=== PATIENT | male | born 1980 | race American Indian/Alaskan Native ===

== ENCOUNTER 2017-04-21 21:14 | Inpatient (IN) | payer MEDICAID, OTHER ==
--- NOTE | 2017-04-21 22:20 | C.PDOC ---
History Of Present Illness The patient presents to the ED for psychiatric evaluation. Patient states he is homeless, depressed, and needs help with his medications. Patient denies suicidal/homicidal ideation at this time. Time Seen by Provider: 04/21/17 22:20 Chief Complaint (Nursing): Psychiatric Evaluation History Per: Patient History/Exam Limitations: no limitations Onset/Duration Of Symptoms: Days Current Symptoms Are (Timing): Still Present Suicide/Self Injury Attempted (Context): None Modifying Factor(s): None Severity: Mild Pain Scale Rating Of: 2 Associated Symptoms: Depression. denies: Suicidal Thoughts, Suicidal Plan Involuntary Hold By: None Recent travel outside of the [place]: No Additional History Per: Patient Past Medical History Reviewed: Historical Data, Nursing Documentation, Vital Signs Vital Signs: Last Vital Signs Temp 97.7 F 04/22/17 02:57 Pulse 77 04/22/17 02:57 Resp 18 04/22/17 02:57 BP 130/80 04/22/17 02:57 Pulse Ox 95 04/22/17 02:57 - Medical History PMH: Anxiety, Depression Surgical History: No Surg Hx Family History: States: Unknown Family Hx - Social History Hx Alcohol Use: Yes Hx Substance Use: Yes Review Of Systems Constitutional: Negative for: Fever, Chills Cardiovascular: Negative for: Chest Pain, Palpitations Respiratory: Negative for: Cough, Shortness of Breath Gastrointestinal: Negative for: Nausea, Vomiting, Abdominal Pain Skin: Negative for: Rash, Lesions, Jaundice, Bruising Neurological: Negative for: Weakness, Numbness Psych: Positive for: Depression. Negative for: Suicidal ideation Physical Exam - Physical Exam Appears: Non-toxic, No Acute Distress Skin: Warm, Dry Head: Normacephalic Eye(s): bilateral: Normal Inspection Oral Mucosa: Moist Neck: Supple Chest: Symmetrical, No Deformity Cardiovascular: Rhythm Regular, No Murmur Respiratory: No Accessory Muscle Use Gastrointestinal/Abdominal: Soft, No Tenderness, No Distention Back: No CVA Tenderness Extremity: Normal ROM Extremity: Bilateral: Atraumatic Pulses: Left Dorsalis Pedis: Normal, Right Dorsalis Pedis: Normal Neurological/Psych: Oriented x3 Gait: Steady ED Course And Treatment - Laboratory Results Result Diagrams: 04/21/17 23:40 04/21/17 23:40 O2 Sat by Pulse Oximetry: 100 (on RA) Pulse Ox Interpretation: Normal Progress Note: labs ordered and reviewed. Disposition Discussed With DrJose: Sean Mcnulty Comment: accepted the pt on his service and took over the care at 3:17AM Doctor Will See Patient In The: Hospital Counseled Patient/Family Regarding: Studies Performed, Diagnosis - Disposition Disposition: HOSPITALIZED Disposition Time: 22:20 Condition: FAIR Forms: [facility] (Guinean) - Clinical Impression Clinical Impression: Schizoaffective disorder - Scribe Statement The provider has reviewed the documentation as recorded by the Scribe (Bijal Luna) Provider Attestation: All medical record entries made by the Scribe were at my direction and personally dictated by me. I have reviewed the chart and agree that the record accurately reflects my personal performance of the history, physical exam, medical decision making, and the department course for this patient. I have also personally directed, reviewed, and agree with the discharge instructions and disposition. Decision To Admit - Pt Status Changed To: Hospital Disposition Of: Inpatient - Admit Certification Admit to Inpatient:: After my assessment, the patient will require hospitalization for at least two midnights. This is because of the severity of symptoms shown, intensity of services needed, and/or the medical risk in this patient being treated as an outpatient. - InPatient: Physician Admission Certification: I certify that this patient requires 2 or more midnights of care for the following reason:: After my assessment, the patient will require hospitalization for at least two midnights. This is because of the severity of symptoms shown, intensity of services needed, and/or the medical risk in this patient being treated as an outpatient. - . Bed Request Type: Psychiatry Admitting Physician: Sean Mcnulty Patient Diagnosis: Schizoaffective disorder
[2017-04-21 23:53] LABS: BASO % 0.4 % (0.0-2.0); EOS # 0.1 K/uL (0.0-0.7); EOS % 0.7 % (0.0-4.0); HEMATOCRIT 38.7 % (35.0-51.0); LYMPH # 3.4 K/uL (1.0-4.3); MEAN CELL VOLUME 73.6 fL (80.0-94.0); MEAN CORPUSCULAR HEMOGLOBIN 25.8 pg (27.0-31.0); MEAN CORPUSCULAR HGB CONC 35.1 g/dL (33.0-37.0); MONO # 0.6 K/uL (0.0-0.8); MONO % 7.9 % (0.0-10.0); NRBC % 0.2 % (0.0-2.0); RED CELL DISTRIBUTION WIDTH 17.1 % (11.5-14.5); WHITE BLOOD COUNT 7.1 K/uL (4.8-10.8)
[2017-04-21 23:56] LABS: CHLORIDE 101 mmol/L (98-107); SODIUM 140 mmol/L (132-148)
[2017-04-21 23:59] LABS: ALB/GLOB RATIO 1.4 (1.0-2.1); ALKALINE PHOSPHATASE 42 U/L (38-126); ALT/SGPT 23 U/L (21-72); AST/SGOT 19 U/L (17-59); BILIRUBIN,TOTAL 0.4 mg/dL (0.2-1.3); BLOOD UREA NITROGEN 10 mg/dL (9-20); CALCIUM 9.1 mg/dl (8.6-10.4); CARBON DIOXIDE 30 mmol/L (22-30); GFR AFRICAN-AMERICAN > 60; GLUCOSE,RANDOM 83 mg/dL (75-110)
[2017-04-22] LABS: ALCOHOL SERUM < 10 mg/dl (0-10)
[2017-04-22 00:53] LABS: URINE BILIRUBIN NEGATIVE (NEGATIVE); URINE BLOOD NEGATIVE (NEGATIVE); URINE COLOR Straw (YELLOW); URINE GLUCOSE (UA) NORMAL (Normal); URINE KETONE NEGATIVE (NEGATIVE); URINE LEUKOCYTE ESTERASE NEG Leu/uL (Negative); URINE PROTEIN NEGATIVE (NEGATIVE); URINE UROBILINOGEN NORMAL mg/dL (0.2-1.0)
[2017-04-22] MEDS ORDERED: Pneumococcal 23-Valent Vaccine IM ONE (04:33)
--- NOTE | 2017-04-22 04:40 | PCM.BM ---
<MikejohanaKhushi - Last Filed: 04/22/17 04:37> Treatment Plan Problems - Problems identified on initial assessmt Depression Date Initiated: 04/22/17 Time Initiated: 04:38 Assessment reference: NA Status: Active Treatment assets and liabiliti Patient Assests: cooperative, motivated, self-reliant, ADL independent, negotiates basic needs Patient Liabilities: live alone, financial problems, poor support system, relationship conflicts, dietary restrictions - Milieu Protocol Maintain good personal hygiene: daily Encourage regular showers, daily Remind patient to perform daily oral care, daily Assist patient to perform ADL's Maintain personal safety: every shift Educate patient to report safety concerns to staff, every shift Monitor environment for contraband/sharps Medication safety: Monitor for expected outcome, potential side effects: every shift, Assess barriers to learning: every shift, Assess readiness for medication education: every shift <Danielle Robb - Last Filed: 04/22/17 10:48> Family Contact Family involvement: Famliy/SO not involved - Outside Agency Agency 1 Care involvment: Following patient during stay, Information-sharing Agency contact name: [facility] contact number: - Goals for Treatment Patient goals for treatment: "I need housing." Discharge/Continuing Care - Education Needs Education Needs: Patient Medication, Patient Coping Skills, Patient Placement options, Patient Community resources - Discharge Discharge Criteria: Tolerates medication w/o severe side effects, Free of Suicidal thoughts, Reduction of target symptoms Discharge to:: [facility] - Treatment Team Participation Discussed with Family/SO: No Was Patient/Family/SO present at Treatment Team Meeting: Yes <Mita Vivas - Last Filed: 04/24/17 15:50> - Diagnosis (1) Schizoaffective disorder Status: Acute Interventions: 04/24/17 15:50 * Assess/adjust medications daily and /or as needed * See patient on an individual basis 7x/week to assess level of manic behaviors and stability * Discuss risks, benefits, side effects and alternatives of medications *
[2017-04-22] MEDS: Divalproex 500 mg DR Tab PO SCH ×2 (12:07→17:35)
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
[2017-04-23] MEDS: Divalproex 500 mg DR Tab PO SCH ×2 (09:25→17:04)
--- NOTE | 2017-04-23 11:13 | PCM.PYCHPN ---
Psychiatric Progress Note - Psychiatric Progress Note Patient seen today, length of contact: 15 minutes Patient Chief Complaint: "Everything is well" Problems Identified/Issues Discussed: The patient was seen, chart reviewed, case discussed with staff. The patient is compliant with medications and reports no side effects. Patient states that "everything is well" and he slept last night. He denies suicidal ideation or paranoia. Symptoms are improving, but patient is at increased risk for relapse, appears childlike in nature with regression, thus needs more time to stabilize. After care discussed--patient will likely be discharged next week and expresses understanding. Support and psychoeducation given. Medication Change: No Medical Record Reviewed: Yes Mental Status Examination - Cognitive Function Orientation: Person, Place, Situation, Time Memory: Intact Attention: WNL Concentration: Poor Association: WNL Fund of Knowledge: WNL - Mood Mood: Anxious - Affect Affect: Constricted - Speech Speech: Appropriate, Soft - Formal Thought Process Formal Thought Process: No Impairment - Suicidal Ideation Suicidal Ideation: No - Homicidal Ideation Homicidal Ideation: No Goal/Treatment Plan - Goal/Treatment Plan Need for Continued Stay: Discharge may exacerbated symptoms Progress Toward Problem(s) and Goals/Treatment Plan: Continue medications Support and psychoeducation daily Attend groups and activities daily After care planning by KIKO
[2017-04-24] MEDS: Divalproex 500 mg DR Tab PO SCH ×2 (09:09→17:55)
--- NOTE | 2017-04-24 11:41 | PCM.PYCHPN ---
Psychiatric Progress Note - Psychiatric Progress Note Patient seen today, length of contact: 15 minutes Patient Chief Complaint: "OK" Problems Identified/Issues Discussed: The pt is seen, chart reviewed, case discussed with staff. Support given, CBT and MS used briefly No new symptoms reported, improving slowly and needs more time No SEs from medications, risks discussed. After care discussed, will go back to [facility] but they are not calling us back. He says he is homeless otherwise Medication Change: No Medical Record Reviewed: Yes Mental Status Examination - Cognitive Function Orientation: Person, Place, Situation, Time Memory: Intact Attention: WNL Concentration: Poor Association: WNL Fund of Knowledge: WNL - Mood Mood: Anxious - Affect Affect: Constricted - Speech Speech: Appropriate, Soft - Formal Thought Process Formal Thought Process: No Impairment - Suicidal Ideation Suicidal Ideation: No - Homicidal Ideation Homicidal Ideation: No Goal/Treatment Plan - Goal/Treatment Plan Need for Continued Stay: Discharge may exacerbated symptoms Progress Toward Problem(s) and Goals/Treatment Plan: Continue medications Support and psychoeducation daily Attend groups and activities daily After care planning: [facility] Depot shot if we could learn the last shot's date
[2017-04-25] MEDS: Divalproex 500 mg DR Tab PO SCH ×2 (09:13→17:13)
--- NOTE | 2017-04-25 19:04 | PCM.PYCHPN ---
Psychiatric Progress Note - Psychiatric Progress Note Patient seen today, length of contact: 15 minutes Patient Chief Complaint: I'm feeling much better, not hearing any voices. Problems Identified/Issues Discussed: Patient seen. Chart reviewed. Case discussed with the staff. Issues related to illness and treatment were discussed with the patient. Reported compliant with treatment with no adverse affects. Tolerating treatment very well. Reported feeling much better, not hearing any voices. Better sleep. At the time of evaluation, patient was awake alert oriented 3, had no delusions , no auditory or visual hallucinations, no suicidal ideations or homicidal ideations. Medical Problems: None reported Diagnostic Results: Reviewed DSM 5 Symptoms Update: Improving with treatment Medication Change: No Medical Record Reviewed: Yes Mental Status Examination - Cognitive Function Orientation: Person, Place, Situation, Time Memory: Intact Attention: WNL Concentration: WNL Association: WN Fund of Knowledge: [facility] Decription of patient's judgement and insights: Fair - Mood Mood: Neutral - Affect Affect: Other (Appropriate) - Speech Speech: Appropriate, Soft - Formal Thought Process Formal Thought Process: No Impairment - Suicidal Ideation Suicidal Ideation: No - Homicidal Ideation Homicidal Ideation: No Goal/Treatment Plan - Goal/Treatment Plan Need for Continued Stay: Remain at risks for inpatient hospitalization, Discharge may exacerbated symptoms, Severe functional impairment Progress Toward Problem(s) and Goals/Treatment Plan: Patient education Supportive therapy Continue treatment as before Estimated Date of D/C: 04/28/17 - Smoking Cessation Smoking Cessation Initiated: No
[2017-04-26] MEDS: Divalproex 500 mg DR Tab PO SCH ×2 (09:03→17:36)
--- NOTE | 2017-04-26 14:59 | PCM.PYCHPN ---
Psychiatric Progress Note - Psychiatric Progress Note Patient seen today, length of contact: 15 minutes Patient Chief Complaint: I'm feeling much better, not hearing any voices. Problems Identified/Issues Discussed: Patient seen. Chart reviewed. Case discussed with the staff. Issues related to illness and treatment were discussed with the patient. Reported compliant with treatment with no adverse affects. Tolerating treatment very well. Reported feeling much better, not hearing any voices. Better sleep. Reported he is worried about his living situation outside. Wants to get an apartment before leave. At the time of evaluation, patient was awake alert oriented 3, had no delusions , no auditory or visual hallucinations, no suicidal ideations or homicidal ideations. Medical Problems: None reported Diagnostic Results: Reviewed DSM 5 Symptoms Update: Improving with treatment Medication Change: No Medical Record Reviewed: Yes Mental Status Examination - Cognitive Function Orientation: Person, Place, Situation, Time Memory: Intact Attention: WNL Concentration: WNL Association: WNL Fund of Knowledge: WN Decription of patient's judgement and insights: Fair - Mood Mood: Neutral - Affect Affect: Other (Appropriate) - Speech Speech: Soft - Formal Thought Process Formal Thought Process: Loosening of associations - Suicidal Ideation Suicidal Ideation: No - Homicidal Ideation Homicidal Ideation: No Goal/Treatment Plan - Goal/Treatment Plan Need for Continued Stay: Remain at risks for inpatient hospitalization, Discharge may exacerbated symptoms, Severe functional impairment Progress Toward Problem(s) and Goals/Treatment Plan: Patient education Supportive therapy Continue treatment as before Estimated Date of D/C: 04/28/17 - Smoking Cessation Smoking Cessation Initiated: No
[2017-04-27] MEDS: Divalproex 500 mg DR Tab PO SCH ×2 (09:31→17:24)
--- NOTE | 2017-04-27 22:02 | PCM.PYCHPN ---
Psychiatric Progress Note - Psychiatric Progress Note Patient seen today, length of contact: 15 minutes Patient Chief Complaint: "I can't leave here yet" Problems Identified/Issues Discussed: The pt is seen, chart reviewed, case discussed with staff. Support given, CBT and [place] used briefly He is irate and gets intimidating when he is told that he cannot stay just so he can get his $ He plans to stay in a "rooming house by [facility] on [address]," but as per our SW [facility] has not told anything about it [facility] also said that he doesn't get along and gets kicked out from everywhere. He had 250 mg Haldol Dec via [facility] around 04/01 as per [facility] Medication Change: Yes (start haldol dec 200 mg) Medical Record Reviewed: Yes Mental Status Examination - Cognitive Function Orientation: Person, Place, Situation, Time Memory: Intact Attention: WNL Concentration: WNL Association: WNL Fund of Knowledge: WNL - Mood Mood: Neutral - Affect Affect: Other (Appropriate) - Speech Speech: Soft - Formal Thought Process Formal Thought Process: Loosening of associations - Suicidal Ideation Suicidal Ideation: No - Homicidal Ideation Homicidal Ideation: No Goal/Treatment Plan - Goal/Treatment Plan Need for Continued Stay: Remain at risks for inpatient hospitalization, Discharge may exacerbated symptoms, Severe functional impairment Progress Toward Problem(s) and Goals/Treatment Plan: Continue medications Support and psychoeducation daily Attend groups and activities daily After care planning: [facility] Haldol Depot shot but 200 mg, not 250. Estimated Date of D/C: 05/01/17
[2017-04-28] MEDS: Divalproex 500 mg DR Tab PO SCH ×2 (09:54→17:25)
[2017-04-28] MEDS ORDERED: Haloperidol Decanoate 100 mg/ml Inj IM ONE (10:00)
--- NOTE | 2017-04-28 12:42 | PCM.PYCHPN ---
Psychiatric Progress Note - Psychiatric Progress Note Patient seen today, length of contact: 15 minutes Patient Chief Complaint: "I am irritable" Problems Identified/Issues Discussed: The pt is seen, chart reviewed, case discussed with staff. Support given, CBT and [place] used He has the insight to know he is getting more irate lately and testy He has not gotten into any fights but meds increased He keeps cursing at [facility] team ("a..h..s") for no reason and he believes they did not help him even though the fact is the opposite Reality testing encouraged He got his Dec shot, first part Medication Change: Yes (start haldol dec 200 mg) Medical Record Reviewed: Yes Mental Status Examination - Cognitive Function Orientation: Person, Place, Situation, Time Memory: Intact Attention: WNL Concentration: WNL Association: WNL Fund of Knowledge: Poor - Mood Mood: Other (angry at times, irate) - Affect Affect: Constricted - Speech Speech: Soft - Formal Thought Process Formal Thought Process: Loosening of associations - Suicidal Ideation Suicidal Ideation: No - Homicidal Ideation Homicidal Ideation: No Goal/Treatment Plan - Goal/Treatment Plan Need for Continued Stay: Remain at risks for inpatient hospitalization, Discharge may exacerbated symptoms, Severe functional impairment Progress Toward Problem(s) and Goals/Treatment Plan: Continue medications but increase depakote Valp level on [place] Support and psychoeducation daily Attend groups and activities daily After care planning: [facility] Haldol Depot shot but 200 mg, not 250. Estimated Date of D/C: 05/01/17
[2017-04-29] MEDS: Divalproex 500 mg DR Tab PO SCH ×2 (09:11→17:08)
--- NOTE | 2017-04-29 09:47 | PCM.BM ---
<Danielle Robb - Last Filed: 04/29/17 09:45> Treatment Plan Problems - Problems identified on initial assessmt Depression Date Initiated: 04/22/17 Time Initiated: 04:38 Assessment reference: NA Status: Active Treatment assets and liabiliti Patient Assests: cooperative, motivated, self-reliant, ADL independent, negotiates basic needs Patient Liabilities: live alone, financial problems, poor support system, relationship conflicts, dietary restrictions - Milieu Protocol Maintain good personal hygiene: daily Encourage regular showers, daily Remind patient to perform daily oral care, daily Assist patient to perform ADL's Maintain personal safety: every shift Educate patient to report safety concerns to staff, every shift Monitor environment for contraband/sharps Medication safety: Monitor for expected outcome, potential side effects: every shift, Assess barriers to learning: every shift, Assess readiness for medication education: every shift Milieu Narrative: Continue medications but increase depakote Valp level on Samara Support and psychoeducation daily Attend groups and activities daily After care planning: [facility] Haldol Depot shot but 200 mg, not 250. Family Contact Family involvement: Famliy/SO not involved - Outside Agency Agency 1 Care involvment: Following patient during stay, Information-sharing Agency contact name: [facility] Agency contact number: - Goals for Treatment Patient goals for treatment: "I need housing." Discharge/Continuing Care - Education Needs Education Needs: Patient Medication, Patient Coping Skills, Patient Placement options, Patient Community resources - Discharge Discharge Criteria: Tolerates medication w/o severe side effects, Free of Suicidal thoughts, Reduction of target symptoms Discharge to:: Residential - Treatment Team Participation Patient/Family/SO Statement: Continue medications but increase depakote Valp level on Samara Support and psychoeducation daily Attend groups and activities daily After care planning: [facility] Haldol Depot shot but 200 mg, not 250. Discussed with Family/SO: No Was Patient/Family/SO present at Treatment Team Meeting: Yes Treatment Plan Review Patient participation: Yes Family/SO/Caregiver participation: No - Problem Depression Date Initiated: 04/29/17 Time Initiated: 09:47 Progress toward outcomes: unchanged <Mita Vivas - Last Filed: 04/29/17 12:25> - Diagnosis (1) Schizoaffective disorder Status: Acute Interventions: 04/29/17 12:26 * Assess/adjust medications daily and /or as needed * Discuss risks, benefits, sided effects and alternatives of medications * See patient on an individual basis 7x/week to assess level of delusional thoughts/ideation * See patient on an individual basis 7x/week to assess level of manic behaviors and stability * * <Lizeth George - Last Filed: 04/29/17 13:33> Treatment Plan Review - Discharge / Continuing Care Discharge to:: [facility]idential [facility] Services: Other Health Needs: Doctor appointments, Medications/Rx
[2017-04-29] MEDS ORDERED: Haloperidol Decanoate 100 mg/ml Inj IM ONE (10:00)
--- NOTE | 2017-04-29 12:25 | PCM.PYCHPN ---
Psychiatric Progress Note - Psychiatric Progress Note Patient seen today, length of contact: 16 min Patient Chief Complaint: "I am leaving Thursday" Problems Identified/Issues Discussed: The pt is seen, chart reviewed, case discussed with staff. Support given, CBT and PR used Got the 200 mg haldol dec shot in 2 days Still irate and somewhat paranoid but denies HI, SI and AVH/del. He "hears" staff talking negatively or bothering him - which may be his sx Sleeps OK How to control mood and bhv and anger discussed Somewhat entitled and help-rejecting. Medication Change: Yes Medical Record Reviewed: Yes Mental Status Examination - Cognitive Function Orientation: Person, Place, Situation, Time Memory: Intact Attention: WNL Concentration: WNL Association: WNL Fund of Knowledge: Poor - Mood Mood: Other (angry at times, irate) - Affect Affect: Constricted - Speech Speech: Soft - Formal Thought Process Formal Thought Process: Loosening of associations - Suicidal Ideation Suicidal Ideation: No - Homicidal Ideation Homicidal Ideation: No Goal/Treatment Plan - Goal/Treatment Plan Need for Continued Stay: Remain at risks for inpatient hospitalization, Discharge may exacerbated symptoms, Severe functional impairment Progress Toward Problem(s) and Goals/Treatment Plan: Continue medications but increase depakote Valp level on Samara Support and psychoeducation daily Attend groups and activities daily After care planning: [facility] Haldol Depot shot but 200 mg, not 250. Estimated Date of D/C: 05/01/17
[2017-04-30 08:18] LABS: BASO % 0.4 % (0.0-2.0); EOS # 0.1 K/uL (0.0-0.7); EOS % 1.6 % (0.0-4.0); LYMPH # 2.3 K/uL (1.0-4.3); LYMPH % 35.2 % (20.0-40.0); MEAN CELL VOLUME 73.6 fL (80.0-94.0); MEAN CORPUSCULAR HEMOGLOBIN 25.6 pg (27.0-31.0); MEAN CORPUSCULAR HGB CONC 34.8 g/dL (33.0-37.0); MONO # 0.9 K/uL (0.0-0.8); MONO % 13.2 % (0.0-10.0); RED CELL DISTRIBUTION WIDTH 17.3 % (11.5-14.5); WHITE BLOOD COUNT 6.6 K/uL (4.8-10.8)
[2017-04-30 08:29] LABS: CHLORIDE 95 mmol/L (98-107); POTASSIUM 4.9 mmol/L (3.6-5.2); SODIUM 139 mmol/L (132-148)
[2017-04-30 08:31] LABS: BILIRUBIN,TOTAL 0.5 mg/dL (0.2-1.3); CARBON DIOXIDE 30 mmol/L (22-30); GFR AFRICAN-AMERICAN > 60
[2017-04-30 08:32] LABS: ALB/GLOB RATIO 1.3 (1.0-2.1); ALKALINE PHOSPHATASE 45 U/L (38-126); ALT/SGPT 36 U/L (21-72); AST/SGOT 25 U/L (17-59); BLOOD UREA NITROGEN 16 mg/dL (9-20); CALCIUM 9.3 mg/dl (8.6-10.4); GLUCOSE,RANDOM 86 mg/dL (75-110); TOTAL PROTEIN 7.4 g/dL (6.3-8.3)
[2017-04-30] MEDS: Divalproex 500 mg DR Tab PO SCH ×2 (09:42→17:11)
--- NOTE | 2017-04-30 12:25 | PCM.PYCHPN ---
Psychiatric Progress Note - Psychiatric Progress Note Patient seen today, length of contact: 17 min Patient Chief Complaint: "I am calm" Problems Identified/Issues Discussed: The pt is seen, chart reviewed, case discussed with staff. He is not calm actually but also not agitated a lot or irate frequently. He has a short fuse and little things annoy him. He also misperceives things which can get him into trouble in the near future. How to control and decrease these discussed but he is rigid. Compliant with meds, no SEs and AIMS is zero Medication Change: No Medical Record Reviewed: Yes Mental Status Examination - Cognitive Function Orientation: Person, Place, Situation, Time Memory: Intact Attention: WNL Concentration: WNL Association: WNL Fund of Knowledge: Poor - Mood Mood: Other (angry at times, irate) - Affect Affect: Constricted - Speech Speech: Soft - Formal Thought Process Formal Thought Process: Loosening of associations - Suicidal Ideation Suicidal Ideation: No - Homicidal Ideation Homicidal Ideation: No Goal/Treatment Plan - Goal/Treatment Plan Need for Continued Stay: Remain at risks for inpatient hospitalization, Discharge may exacerbated symptoms, Severe functional impairment Progress Toward Problem(s) and Goals/Treatment Plan: Continue medications but increase depakote Valp level done: 91.8, he is recommended to repeat it in a month. [facility] does it. Support and psychoeducation daily Attend groups and activities daily After care planning: [facility] Haldol Depot shot but 200 mg given Estimated Date of D/C: 05/01/17
[2017-05-01 08:31] VITALS: BP 131/87; PULSE 70; RESP 16; TEMP 98; O2SAT 99
[2017-05-01] MEDS: Divalproex 500 mg DR Tab PO SCH (09:35)
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
== END 2017-05-01 10:39 | disposition home or self-care (01) | DRG 430 ==
LOC: C.ER 21:14 → C.5E 04-22 03:15
PROVIDERS: ADMIT Psychiatry & Neurology Psychiatry; ATTEND Psychiatry & Neurology Psychiatry
PROC: GZ58ZZZ Individual Psychotherapy, Cognitive-Behavioral (ICD-10-PCS; principal; 2017-04-22)
PROC: GZ56ZZZ Individual Psychotherapy, Supportive (ICD-10-PCS; 2017-04-22)
DX: F25.0 Schizoaffective disorder, bipolar type (principal); Z59.0 Homelessness; F12.90 Cannabis use, unspecified, uncomplicated

== ENCOUNTER 2017-06-03 14:00 | Inpatient (IN) | payer MEDICAID, OTHER ==
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
[2017-06-03 15:15] LABS: BASO % 0.2 % (0.0-2.0); EOS # 0.1 K/uL (0.0-0.7); EOS % 1.2 % (0.0-4.0); HEMATOCRIT 44.4 % (35.0-51.0); LYMPH # 2.4 K/uL (1.0-4.3); LYMPH % 39.5 % (20.0-40.0); MEAN CELL VOLUME 74.7 fL (80.0-94.0); MEAN CORPUSCULAR HEMOGLOBIN 25.1 pg (27.0-31.0); MEAN CORPUSCULAR HGB CONC 33.6 g/dL (33.0-37.0); MEAN PLATELET VOLUME 8.5 fL (7.2-11.7); MONO # 0.5 K/uL (0.0-0.8); NRBC % 0.1 % (0.0-2.0); RED CELL DISTRIBUTION WIDTH 17.2 % (11.5-14.5); WHITE BLOOD COUNT 6.2 K/uL (4.8-10.8)
[2017-06-03 15:23] LABS: CHLORIDE 101 mmol/L (98-107)
[2017-06-03 15:24] LABS: POTASSIUM 3.9 mmol/L (3.6-5.2); SODIUM 138 mmol/L (132-148)
[2017-06-03 15:25] LABS: RBC URINE < 1 /hpf (0-3); URINE BILIRUBIN NEGATIVE (NEGATIVE); URINE BLOOD NEGATIVE (NEGATIVE); URINE COLOR Amber (YELLOW); URINE GLUCOSE (UA) NORMAL (Normal); URINE KETONE NEGATIVE (NEGATIVE); URINE LEUKOCYTE ESTERASE NEG Leu/uL (Negative); URINE PROTEIN 1+ mg/dL (NEGATIVE); URINE UROBILINOGEN NORMAL mg/dL (0.2-1.0); WBC URINE 1 /hpf (0-5)
[2017-06-03 15:26] LABS: ALB/GLOB RATIO 1.1 (1.0-2.1); ALKALINE PHOSPHATASE 58 U/L (38-126); ALT/SGPT 41 U/L (21-72); AST/SGOT 28 U/L (17-59); BILIRUBIN,TOTAL 0.6 mg/dL (0.2-1.3); BLOOD UREA NITROGEN 11 mg/dL (9-20); CARBON DIOXIDE 26 mmol/L (22-30); GFR AFRICAN-AMERICAN > 60; GLUCOSE,RANDOM 85 mg/dL (75-110); TOTAL PROTEIN 8.8 g/dL (6.3-8.3)
[2017-06-03 15:27] LABS: ALCOHOL SERUM < 10 mg/dl (0-10); CALCIUM 9.3 mg/dl (8.6-10.4)
--- NOTE | 2017-06-03 18:06 | PCM.BM ---
<Dyan Boucheran - Last Filed: 06/03/17 18:05> Treatment Plan Problems - Problems identified on initial assessmt Auditory Hallucinations Date Initiated: 06/03/17 Time Initiated: 18:05 Assessment reference: NA Status: Active Comment: non compliant with medications Treatment assets and liabiliti Patient Assests: cooperative, motivated, self-reliant, ADL independent, negotiates basic needs Patient Liabilities: financial problems, poor support system, substance abuse, other - Milieu Protocol Maintain good personal hygiene: daily Encourage regular showers, daily Remind patient to perform daily oral care Conduct patient checks and document Observation sheet: Q15 minutes Maintain personal safety: every shift Educate patient to report safety concerns to staff, every shift Monitor environment for contraband/sharps Medication safety: Monitor for expected outcome, potential side effects: every shift, Assess barriers to learning: every shift, Assess readiness for medication education: every shift <HamletSean - Last Filed: 06/05/17 10:58> - Diagnosis (1) Schizoaffective disorder, bipolar type Status: Acute Interventions: 06/05/17 10:58 * Assess/adjust medications daily and /or as needed * See patient on an individual basis 7x/week to assess status of hallucinations * Discuss risks, benefits, side effects and alternatives of medications * <Danielle Robb - Last Filed: 06/05/17 11:05> Family Contact Family involvement: Famliy/SO not involved - Outside Agency Agency 1 Care involvment: Following patient during stay, Information-sharing Agency contact name: [facility] Agency contact number: - Goals for Treatment Patient goals for treatment: "I want to go back to [facility]." Discharge/Continuing Care - Education Needs Education Needs: Patient Medication, Patient Coping Skills - Discharge Discharge Criteria: Tolerates medication w/o severe side effects, Reduction of target symptoms Discharge to:: [facility] - Treatment Team Participation Discussed with Family/SO: No Was Patient/Family/SO present at Treatment Team Meeting: Yes
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
--- NOTE | 2017-06-05 10:58 | PCM.PYCHPN ---
Psychiatric Progress Note - Psychiatric Progress Note Patient seen today, length of contact: 15 min Patient Chief Complaint: 'I am feeling little better.' Problems Identified/Issues Discussed: Patient seen and evaluated, chart reviewed and discussed with the nurse. Patient remained disorganized and internally preoccupied. He appeared suspicious , paranoid and psychotic. He remained superficially cooperative and guarded about the details. However denied any suicidal ideation or homicidal ideation. He remained calm and cooperative and started taking medication and denies any side effects. He still appears disheveled and unkempt. Supportive therapy and psychoeducation were given. Medication Change: Yes (increase haldol) Medical Record Reviewed: Yes Mental Status Examination - Cognitive Function Orientation: Person, Place, Situation, Time Memory: Intact Attention: Poor Concentration: Poor Association: Loose Fund of Knowledge: Poor - Mood Mood: Anxious - Affect Affect: Blunted - Speech Speech: Soft - Formal Thought Process Formal Thought Process: Hallucinations, Delusions, Paranoia, Loosening of associations, Flight of ideas, Circumstantial - Suicidal Ideation Suicidal Ideation: No - Homicidal Ideation Homicidal Ideation: No Goal/Treatment Plan - Goal/Treatment Plan Need for Continued Stay: Discharge may exacerbated symptoms, Severe functional impairment Progress Toward Problem(s) and Goals/Treatment Plan: Schizoaffective disorder Bipolar type CBT Attend groups and activities Individual therapy Psychoeducation and support Encourage compliance with meds and after care Benztropine 1 mg PO BID Haloperidol 10 mg PO BID Depakote 500 mg pO BID Trazodone 100 mg PO QHS Klonopin 0.5 mg PO BID Refer to outpatient program Teach healthy lifestyle methods, i.e. diet, exercise, meditation Smoking cessation h/o seizure, Monitor s/s Bronchitis, Monitor s/s HTN Monitor s/s - Smoking Cessation Smoking Cessation Initiated: No
[2017-06-05] MEDS: Divalproex 500 mg DR Tab PO SCH ×2 (15:50→17:29)
[2017-06-06] MEDS: Divalproex 500 mg DR Tab PO SCH ×2 (09:32→17:12)
--- NOTE | 2017-06-06 13:47 | PCM.PYCHPN ---
Psychiatric Progress Note - Psychiatric Progress Note Patient seen today, length of contact: 15 min Patient Chief Complaint: "OK here" Problems Identified/Issues Discussed: The pt is seen, chart reviewed, case discussed with staff. Support given, CBT and AK used briefly No new symptoms reported, improving slowly and needs more time No SEs from medications, risks discussed. After care discussed, will go to [facility] Medication Change: No Medical Record Reviewed: Yes Mental Status Examination - Cognitive Function Orientation: Person, Place, Situation, Time Memory: Intact Attention: Poor Concentration: Poor Association: Loose Fund of Knowledge: Poor - Mood Mood: Anxious - Affect Affect: Blunted - Speech Speech: Soft - Formal Thought Process Formal Thought Process: Paranoia - Suicidal Ideation Suicidal Ideation: No - Homicidal Ideation Homicidal Ideation: No Goal/Treatment Plan - Goal/Treatment Plan Need for Continued Stay: Discharge may exacerbated symptoms, Severe functional impairment Progress Toward Problem(s) and Goals/Treatment Plan: Continue medications Support and psychoeducation daily Attend groups and activities daily After care planning by KIKO
[2017-06-07] MEDS: Divalproex 500 mg DR Tab PO SCH ×2 (09:45→17:08)
--- NOTE | 2017-06-07 23:32 | PCM.PYCHPN ---
Psychiatric Progress Note - Psychiatric Progress Note Patient seen today, length of contact: 15 min Patient Chief Complaint: "OK here" Problems Identified/Issues Discussed: The pt is seen, chart reviewed, case discussed with staff. The pt is compliant with medications and reports no side-effects. Symptoms are improving but needs more time to stabilize. After care discussed, support and psychoeducation given. Wants to get another depot injection but doesn't recall the name - will check from [facility] tomorrow Medication Change: No Medical Record Reviewed: Yes Mental Status Examination - Cognitive Function Orientation: Person, Place, Situation, Time Memory: Intact Attention: Poor Concentration: Poor Association: Loose Fund of Knowledge: Poor - Mood Mood: Anxious - Affect Affect: Blunted - Speech Speech: Soft - Formal Thought Process Formal Thought Process: Paranoia - Suicidal Ideation Suicidal Ideation: No - Homicidal Ideation Homicidal Ideation: No Goal/Treatment Plan - Goal/Treatment Plan Need for Continued Stay: Discharge may exacerbated symptoms, Severe functional impairment Progress Toward Problem(s) and Goals/Treatment Plan: Continue medications Support and psychoeducation daily Attend groups and activities daily After care planning: back to [facility]
--- NOTE | 2017-06-08 10:02 | PCM.PYCHPN ---
Psychiatric Progress Note - Psychiatric Progress Note Patient seen today, length of contact: 16 min Patient Chief Complaint: "The voices are lower" Problems Identified/Issues Discussed: Patient seen and evaluated, chart reviewed and discussed with the nurse. Patient remains disorganized although less internally preoccupied. He admitted to the return of suicidal and homicidal thoughts. He appears paranoid and psychotic, as well as disheveled and unkempt. He remained calm and cooperative during discussion. He wants to stay in the hospital until July when his next check comes. Supportive therapy and psychoeducation were given. Medication Change: No Medical Record Reviewed: Yes Mental Status Examination - Cognitive Function Orientation: Person, Place, Situation, Time Memory: Intact Attention: Poor Concentration: Poor Association: Loose Fund of Knowledge: Poor - Mood Mood: Anxious - Affect Affect: Blunted - Speech Speech: Soft, Pressured - Formal Thought Process Formal Thought Process: Hallucinations, Paranoia Psychotic Thoughts and Behaviors: hearing voices - Suicidal Ideation Suicidal Ideation: Yes - Homicidal Ideation Homicidal Ideation: Yes Goal/Treatment Plan - Goal/Treatment Plan Need for Continued Stay: Discharge may exacerbated symptoms, Severe functional impairment Progress Toward Problem(s) and Goals/Treatment Plan: Schizoaffective disorder bipolar type CBT Attend groups and activites Individual therapy Psychoeducation and support Encourage compliance with meds and after care Benztropine 1mg PO BID Haloperidol 10 mg PO BID Depakote 500 mg PO QHS Trazodone 100 mg PO BID Klonopin .5 mg PO BID refer to outpatient program Teach healthy lifestyle methods, i.e. diet, exercise, meditation Smoking cessation H/o seizure monitor s/s H/o bronchitis monitor s/s HTN monitor s/s - Smoking Cessation Smoking Cessation Initiated: No
[2017-06-08] MEDS: Divalproex 500 mg DR Tab PO SCH ×2 (10:47→17:13)
--- NOTE | 2017-06-09 09:56 | PCM.PYCHPN ---
Psychiatric Progress Note - Psychiatric Progress Note Patient seen today, length of contact: 16 min Patient Chief Complaint: "I feel about the same" Problems Identified/Issues Discussed: Patient seen and evaluated, chart reviewed and discussed with the nurse. As per the staff, patient appears more organized and less internally preoccupied than before. He states he slept well. He appears less paranoid and less psychotic. However, he remained disheveled and unkempt. He remained calm and cooperative during discussion. He is taking medications and denies any side effects. He needs more time for stabilization. Supportive therapy and psychoeducation were given. Medication Change: No Medical Record Reviewed: Yes Mental Status Examination - Cognitive Function Orientation: Person, Place, Situation, Time Memory: Intact Attention: WNL Concentration: Poor Association: Loose Fund of Knowledge: Poor - Mood Mood: Anxious - Affect Affect: Blunted - Speech Speech: Soft, Pressured - Formal Thought Process Formal Thought Process: Hallucinations, Paranoia Psychotic Thoughts and Behaviors: hearing voices - Suicidal Ideation Suicidal Ideation: No - Homicidal Ideation Homicidal Ideation: No Goal/Treatment Plan - Goal/Treatment Plan Need for Continued Stay: Discharge may exacerbated symptoms, Severe functional impairment Progress Toward Problem(s) and Goals/Treatment Plan: Schizoaffective disorder bipolar type CBT Attend groups and activites Individual therapy Psychoeducation and support Encourage compliance with meds and after care Benztropine 1mg PO BID Haloperidol 10 mg PO BID Depakote 500 mg PO QHS Trazodone 100 mg PO BID Klonopin .5 mg PO BID refer to outpatient program Teach healthy lifestyle methods, i.e. diet, exercise, meditation Smoking cessation H/o seizure monitor s/s H/o bronchitis monitor s/s HTN monitor s/s - Smoking Cessation Smoking Cessation Initiated: No
[2017-06-09] MEDS: Divalproex 500 mg DR Tab PO SCH ×2 (10:34→17:35)
[2017-06-10] MEDS: Divalproex 500 mg DR Tab PO SCH ×2 (09:59→17:12)
--- NOTE | 2017-06-10 11:06 | PCM.PYCHPN ---
Psychiatric Progress Note - Psychiatric Progress Note Patient seen today, length of contact: 15 min Patient Chief Complaint: "I have no more bad thoughts" Problems Identified/Issues Discussed: The pt is seen, chart reviewed, case discussed with staff. The pt is compliant with medications and reports no side-effects. Symptoms are improving but needs more time to stabilize. Patient appears more organized and less internally preoccupied than before. He appears less paranoid and less psychotic. However, he remained disheveled and unkempt. After care discussed, support and psychoeducation given. Patient stated he slept well and is excited for discharge next week. Patient states he no longer has SI or AVH, however he reports persecutory delusions that people are after him. Supportive therapy and psychoeducation were given. Medication Change: Yes (reduce klonopin) Medical Record Reviewed: Yes Mental Status Examination - Cognitive Function Orientation: Person, Place, Situation, Time Memory: Intact Attention: WNL Concentration: Poor Association: WNL Fund of Knowledge: Poor - Mood Mood: Anxious - Affect Affect: Blunted - Speech Speech: Soft - Formal Thought Process Formal Thought Process: Paranoia Psychotic Thoughts and Behaviors: hearing voices - Suicidal Ideation Suicidal Ideation: No - Homicidal Ideation Homicidal Ideation: No Goal/Treatment Plan - Goal/Treatment Plan Need for Continued Stay: Discharge may exacerbated symptoms, Severe functional impairment Progress Toward Problem(s) and Goals/Treatment Plan: Schizoaffective disorder bipolar type CBT Attend groups and activites Individual therapy Psychoeducation and support Encourage compliance with meds and after care Benztropine 1mg PO BID Haloperidol 10 mg PO BID Depakote 500 mg PO QHS Trazodone 100 mg PO BID Klonopin .5 mg PO BID refer to outpatient program Teach healthy lifestyle methods, i.e. diet, exercise, meditation Smoking cessation H/o seizure monitor s/s H/o bronchitis monitor s/s HTN monitor s/s - Smoking Cessation Smoking Cessation Initiated: No
--- NOTE | 2017-06-11 09:42 | PCM.PYCHPN ---
Psychiatric Progress Note - Psychiatric Progress Note Patient seen today, length of contact: 15 min Patient Chief Complaint: "I'm tired" Problems Identified/Issues Discussed: The pt is seen, chart reviewed, case discussed with staff. The pt is compliant with medications and reports no side-effects. Symptoms are improving but needs more time to stabilize. Patient is still slightly internally preoccupied but recognizes his preoccupations and ceases them indepently. He denies SI or AVH but still reports persecutory delusions that people are after him. After care discussed, support and psychoeducation given. Medication Change: Yes (reduce klonopin) Medical Record Reviewed: Yes Mental Status Examination - Cognitive Function Orientation: Person, Place, Situation, Time Memory: Intact Attention: WNL Concentration: Poor Association: WNL Fund of Knowledge: Poor - Mood Mood: Anxious - Affect Affect: Blunted - Speech Speech: Soft - Formal Thought Process Formal Thought Process: Paranoia Psychotic Thoughts and Behaviors: hearing voices - Suicidal Ideation Suicidal Ideation: No - Homicidal Ideation Homicidal Ideation: No Goal/Treatment Plan - Goal/Treatment Plan Need for Continued Stay: Discharge may exacerbated symptoms, Severe functional impairment Progress Toward Problem(s) and Goals/Treatment Plan: Schizoaffective disorder bipolar type CBT Attend groups and activites Individual therapy Psychoeducation and support Encourage compliance with meds and after care Benztropine 1mg PO BID Haloperidol 10 mg PO BID Depakote 500 mg PO QHS Trazodone 100 mg PO BID Klonopin .5 mg PO DAILY refer to outpatient program Teach healthy lifestyle methods, i.e. diet, exercise, meditation Smoking cessation H/o seizure monitor s/s H/o bronchitis monitor s/s HTN monitor s/s
[2017-06-11] MEDS: Divalproex 500 mg DR Tab PO SCH ×2 (09:46→17:16)
[2017-06-12] MEDS: Divalproex 500 mg DR Tab PO SCH ×2 (09:33→17:20)
--- NOTE | 2017-06-12 09:38 | PCM.BM ---
<Danielle Robb - Last Filed: 06/12/17 09:38> Treatment Plan Problems - Problems identified on initial assessmt Auditory Hallucinations Date Initiated: 06/03/17 Time Initiated: 18:05 Assessment reference: NA Status: Active Comment: non compliant with medications Treatment assets and liabiliti Patient Assests: cooperative, motivated, self-reliant, ADL independent, negotiates basic needs Patient Liabilities: financial problems, poor support system, substance abuse, other - Milieu Protocol Maintain good personal hygiene: daily Encourage regular showers, daily Remind patient to perform daily oral care Conduct patient checks and document Observation sheet: Q15 minutes Maintain personal safety: every shift Educate patient to report safety concerns to staff, every shift Monitor environment for contraband/sharps Medication safety: Monitor for expected outcome, potential side effects: every shift, Assess barriers to learning: every shift, Assess readiness for medication education: every shift Milieu Narrative: Schizoaffective disorder bipolar type CBT Attend groups and activites Individual therapy Psychoeducation and support Encourage compliance with meds and after care Benztropine 1mg PO BID Haloperidol 10 mg PO BID Depakote 500 mg PO QHS Trazodone 100 mg PO BID Klonopin .5 mg PO DAILY refer to outpatient program Teach healthy lifestyle methods, i.e. diet, exercise, meditation Smoking cessation H/o seizure monitor s/s H/o bronchitis monitor s/s HTN monitor s/s Family Contact Family involvement: Famliy/SO not involved - Outside Agency Agency [facility] Care involvment: Following patient during stay, Information-sharing Agency contact name: [facility] Agency contact number: - Goals for Treatment Patient goals for treatment: "I want to go back to [facility]." Discharge/Continuing Care - Education Needs Education Needs: Patient Medication, Patient Coping Skills - Discharge Discharge Criteria: Tolerates medication w/o severe side effects, Reduction of target symptoms Discharge to:: Skilled Nursing - Treatment Team Participation Patient/Family/SO Statement: Schizoaffective disorder bipolar type CBT Attend groups and activites Individual therapy Psychoeducation and support Encourage compliance with meds and after care Benztropine 1mg PO BID Haloperidol 10 mg PO BID Depakote 500 mg PO QHS Trazodone 100 mg PO BID Klonopin .5 mg PO DAILY refer to outpatient program Teach healthy lifestyle methods, i.e. diet, exercise, meditation Smoking cessation H/o seizure monitor s/s H/o bronchitis monitor s/s HTN monitor s/s Discussed with Family/SO: No Was Patient/Family/SO present at Treatment Team Meeting: Yes Treatment Plan Review - Problem Auditory Hallucinations Time Initiated: 18:05 - Discharge / Continuing Care Discharge to:: Skilled Nursing Behavioral Health Services: Other Health Needs: Medications/Rx <Lizeth George - Last Filed: 06/12/17 15:26> Treatment Plan Review - Problem Auditory Hallucinations Date Initiated: 06/12/17 Time Initiated: 15:25 Progress toward outcomes: improved <Sean Mcnulty - Last Filed: 06/13/17 10:39> - Diagnosis (1) Schizoaffective disorder, bipolar type Status: Acute Interventions: 06/13/17 10:39 * Assess/adjust medications daily and /or as needed * See patient on an individual basis 7x/week to assess status of hallucinations * Discuss risks, benefits, side effects and alternatives of medications *
--- NOTE | 2017-06-12 14:21 | PCM.PYCHPN ---
Psychiatric Progress Note - Psychiatric Progress Note Patient seen today, length of contact: 15 min Patient Chief Complaint: "I feel good" Problems Identified/Issues Discussed: The pt is seen, chart reviewed, case discussed with staff. The pt is seen, chart reviewed, case discussed with staff. The pt is compliant with medications and reports no side-effects. Symptoms are improving but needs more time to stabilize. After care discussed, support and psychoeducation given. Patient states voices are decreasing. He appears less paranoid and less psychotic. He remains disheveled and unkempt. Admits to delusions of people after him. Denies SI After care discussed, support and psychoeducation given. Medication Change: Yes (reduce klonopin) Medical Record Reviewed: Yes Mental Status Examination - Cognitive Function Orientation: Person, Place, Situation, Time Memory: Intact Attention: WNL Concentration: WNL Association: WNL Fund of Knowledge: Poor - Mood Mood: Anxious - Affect Affect: Blunted - Speech Speech: Soft - Formal Thought Process Formal Thought Process: Paranoia Psychotic Thoughts and Behaviors: hearing voices - Suicidal Ideation Suicidal Ideation: No - Homicidal Ideation Homicidal Ideation: No Goal/Treatment Plan - Goal/Treatment Plan Need for Continued Stay: Discharge may exacerbated symptoms, Severe functional impairment Progress Toward Problem(s) and Goals/Treatment Plan: Schizoaffective disorder bipolar type CBT Attend groups and activites Individual therapy Psychoeducation and support Encourage compliance with meds and after care Benztropine 1mg PO BID Haloperidol 10 mg PO BID Depakote 500 mg PO QHS Trazodone 100 mg PO BID Klonopin .5 mg PO DAILY Haldol depot shot on discharge refer to outpatient program Teach healthy lifestyle methods, i.e. diet, exercise, meditation Smoking cessation H/o seizure monitor s/s H/o bronchitis monitor s/s HTN monitor s/s
[2017-06-13] MEDS: Divalproex 500 mg DR Tab PO SCH ×2 (10:00→17:55)
[2017-06-13] MEDS ORDERED: Haloperidol Decanoate 100 mg/ml Inj IM ONE (11:00)
[2017-06-14 08:55] VITALS: O2SAT 97
[2017-06-14] MEDS: Divalproex 500 mg DR Tab PO SCH ×2 (10:14→17:35)
--- NOTE | 2017-06-14 12:04 | PCM.PYCHPN ---
Psychiatric Progress Note - Psychiatric Progress Note Patient seen today, length of contact: 15 min Patient Chief Complaint: "I feel good" Problems Identified/Issues Discussed: Patient seen and evaluated, chart reviewed and discussed with the nurse. Patient reports improvement in his mood and denies any auditory or visual hallucinations. He reports improvement in his irritability and agitation. He denies any feelings of hopelessness and helplessness. He is taking medication and denies any side effects. He needs more time for stabilization. Supportive therapy and psychoeducation were given. Medication Change: Yes (haldol dec) Medical Record Reviewed: Yes Mental Status Examination - Cognitive Function Orientation: Person, Place, Situation, Time Memory: Intact Attention: WNL Concentration: WNL Association: WNL Fund of Knowledge: WNL - Mood Mood: Anxious - Affect Affect: Blunted - Speech Speech: Soft - Formal Thought Process Formal Thought Process: Paranoia - Suicidal Ideation Suicidal Ideation: No - Homicidal Ideation Homicidal Ideation: No Goal/Treatment Plan - Goal/Treatment Plan Need for Continued Stay: Discharge may exacerbated symptoms, Severe functional impairment Progress Toward Problem(s) and Goals/Treatment Plan: Schizoaffective disorder bipolar type CBT Attend groups and activites Individual therapy Psychoeducation and support Encourage compliance with meds and after care Benztropine 1mg PO BID Haloperidol 10 mg PO BID Depakote 500 mg PO QHS Trazodone 100 mg PO BID d/c Klonopin .5 mg PO DAILY Haldol depot shot on discharge refer to outpatient program Teach healthy lifestyle methods, i.e. diet, exercise, meditation Smoking cessation H/o seizure monitor s/s H/o bronchitis monitor s/s HTN monitor s/s - Smoking Cessation Smoking Cessation Initiated: No
[2017-06-15 06:46] VITALS: BP 118/75; PULSE 80; RESP 20; TEMP 98.2
[2017-06-15] MEDS: Divalproex 500 mg DR Tab PO SCH (09:43)
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
== END 2017-06-15 11:05 | disposition home or self-care (01) | DRG 430 ==
LOC: C.ER 14:00 → C.9E 16:06 → C.5E 16:34
PROVIDERS: ADMIT Psychiatry & Neurology Psychiatry; ATTEND Psychiatry & Neurology Psychiatry
PROC: GZ56ZZZ Individual Psychotherapy, Supportive (ICD-10-PCS; principal; 2017-06-03)
DX: F25.0 Schizoaffective disorder, bipolar type (principal); R45.851 Suicidal ideations; Z91.14 Patient's other noncompliance with medication regimen; I10 Essential (primary) hypertension; Z62.810 Personal history of physical and sexual abuse in childhood; E78.00 Pure hypercholesterolemia, unspecified

== ENCOUNTER 2017-07-29 12:10 | Inpatient (IN) | payer MEDICAID, OTHER ==
[2017-07-29 12:19] VITALS: BMI 29.1
[2017-07-29 14:13] LABS: BASO # 0.1 K/uL (0.0-0.2); BASO % 0.8 % (0.0-2.0); EOS # 0.1 K/uL (0.0-0.7); EOS % 1.3 % (0.0-4.0); HEMOGLOBIN 13.4 g/dL (12.0-18.0); LYMPH # 2.8 K/uL (1.0-4.3); LYMPH % 25.8 % (20.0-40.0); MEAN CELL VOLUME 75.7 fL (80.0-94.0); MEAN CORPUSCULAR HEMOGLOBIN 26.4 pg (27.0-31.0); MEAN CORPUSCULAR HGB CONC 34.9 g/dL (33.0-37.0); MEAN PLATELET VOLUME 8.3 fL (7.2-11.7); MONO # 1.1 K/uL (0.0-0.8); MONO % 10.1 % (0.0-10.0); NEUT # 6.7 K/uL (1.8-7.0); RBC 5.09 Mil/uL (4.40-5.90); RED CELL DISTRIBUTION WIDTH 15.6 % (11.5-14.5)
[2017-07-29 14:19] LABS: WHITE BLOOD COUNT 10.8 K/uL (4.8-10.8)
[2017-07-29 14:20] LABS: URINE BILIRUBIN NEGATIVE (NEGATIVE); URINE BLOOD NEGATIVE (NEGATIVE); URINE CLARITY Clear (Clear); URINE COLOR Yellow (YELLOW); URINE GLUCOSE (UA) NORMAL (Normal); URINE LEUKOCYTE ESTERASE NEG Leu/uL (Negative); URINE NITRATE NEGATIVE (NEGATIVE); URINE PROTEIN NEGATIVE (NEGATIVE); URINE UROBILINOGEN NORMAL mg/dL (0.2-1.0)
[2017-07-29 14:40] LABS: ALB/GLOB RATIO 1.1 (1.0-2.1); ALBUMIN 4.1 g/dL (3.5-5.0); ALT/SGPT 27 U/L (21-72); AST/SGOT 33 U/L (17-59); BLOOD UREA NITROGEN 13 mg/dL (9-20); CALCIUM 9.3 mg/dl (8.6-10.4); GFR AFRICAN-AMERICAN > 60; GFR NON-AFRICAN AMERICAN > 60
--- NOTE | 2017-07-29 14:42 | RAD ---
HISTORY: COUGHING COMPARISON: None available. TECHNIQUE: Chest, one view. FINDINGS: LUNGS: No focal consolidation. Please note that chest x-ray has limited sensitivity for the detection of pulmonary masses. PLEURA: No significant pleural effusion identified. No definite pneumothorax . CARDIOVASCULAR: The cardiomediastinal silhouette appears within normal limits of size. OSSEOUS STRUCTURES: No acute osseous abnormality identified. VISUALIZED UPPER ABDOMEN: Unremarkable. OTHER FINDINGS: None. IMPRESSION: No focal consolidation, significant pleural effusion, or definite pneumothorax identified.
[2017-07-29 14:48] LABS: BARBITURATES, UR NEGATIVE (NEGATIVE); BENZODIAZEPINES, UR NEGATIVE (NEGATIVE); OPIATES, UR NEGATIVE (NEGATIVE); PHENCYCLIDINE, UR NEGATIVE (NEGATIVE)
--- NOTE | 2017-07-29 15:11 | C.PDOC ---
Time Seen by Provider: 07/29/17 12:57 Chief Complaint (Nursing): Psychiatric Evaluation Past Medical History Vital Signs: Last Vital Signs Temp 98.8 F 07/29/17 12:19 Pulse 113 H 07/29/17 12:19 Resp 18 07/29/17 12:19 BP 116/81 07/29/17 12:19 Pulse Ox 98 07/29/17 12:19 - Medical History PMH: Anxiety, Depression, HTN, Hypercholesterolemia Denies: Diabetes, Hepatitis, HIV, Chronic Kidney Disease, Seizures, Sexually Transmitted Disease - [facility] Procedures INDIVIDUAL PSYCHOTHERAPY, COGNITIVE-BEHAVIORAL (04/22/17) INDIVIDUAL PSYCHOTHERAPY, SUPPORTIVE (06/03/17) Family History: States: Unknown Family Hx - Social History Hx Alcohol Use: Yes Hx Substance Use: Yes - Immunization History Hx Tetanus Toxoid Vaccination: No Hx Influenza Vaccination: No Hx Pneumococcal Vaccination: No ED Course And Treatment - Laboratory Results Result Diagrams: 07/29/17 14:06 07/29/17 14:06 O2 Sat by Pulse Oximetry: 98 Progress Note: Blood work, UA, UDS, CXR ordered and reviewed. PO Tessalon given for cough. CXR (-) for infiltrate. Disposition - Disposition
--- NOTE | 2017-07-29 15:15 | C.PDOC ---
History Of Present Illness 36-year-old male presents to the emergency department with complaints of feeling depressed. Patient has not taken psychiatric medications in approx two months. Also reports he has been coughing "for a long time." Patient denies fever, chest pain, shortness of breath, SI/HI. No other complaints at this time. Time Seen by Provider: 07/29/17 12:57 Chief Complaint (Nursing): Psychiatric Evaluation History Per: Patient History/Exam Limitations: no limitations Onset/Duration Of Symptoms: Persistent Current Symptoms Are (Timing): Still Present Severity: Moderate Past Medical History Reviewed: Historical Data, Nursing Documentation, Vital Signs Vital Signs: Last Vital Signs Temp 98.2 F 07/30/17 09:00 Pulse 90 07/30/17 15:47 Resp 20 07/30/17 09:00 BP 130/78 07/30/17 15:47 Pulse Ox 99 07/29/17 16:42 - Medical History PMH: Anxiety, Depression, HTN, Hypercholesterolemia - [facility] Procedures INDIVIDUAL PSYCHOTHERAPY, COGNITIVE-BEHAVIORAL (04/22/17) INDIVIDUAL PSYCHOTHERAPY, SUPPORTIVE (06/03/17) Family History: States: No Known Family Hx - Social History Hx Alcohol Use: Yes Hx Substance Use: Yes - Immunization History Hx Tetanus Toxoid Vaccination: No Hx Influenza Vaccination: No Hx Pneumococcal Vaccination: No Review Of Systems Except As Marked, All Systems Reviewed And Found Negative. Constitutional: Negative for: Fever, Chills Cardiovascular: Negative for: Chest Pain Respiratory: Positive for: Cough. Negative for: Shortness of Breath Gastrointestinal: Negative for: Nausea, Vomiting, Abdominal Pain, Diarrhea Psych: Positive for: Depression. Negative for: Suicidal ideation Physical Exam - Physical Exam Appears: Well, Non-toxic, No Acute Distress, Other (Bizarre affect) Skin: Warm, Dry, No Rash Head: Normacephalic Eye(s): bilateral: Normal Inspection Oral Mucosa: Moist Throat: No Erythema, No Exudate Neck: Normal, Normal ROM Cardiovascular: Rhythm Regular Respiratory: Normal Breath Sounds, No Rales, No Rhonchi, No Wheezing, Other ( intermittent coughing) Gastrointestinal/Abdominal: Normal Exam, Bowel Sounds, Soft, No Tenderness Extremity: Normal ROM, No Pedal Edema, No Calf Tenderness Neurological/Psych: Oriented x3 ED Course And Treatment - Laboratory Results Result Diagrams: 07/29/17 14:06 07/29/17 14:06 O2 Sat by Pulse Oximetry: 98 (on RA) Pulse Ox Interpretation: Normal - Radiology CXR: Interpreted by Me, Viewed By Me CXR Interpretation: Yes: No Acute Disease. No: Infiltrates Progress Note: Blood work, UA, UDS, CXR ordered and reviewed. PO Tessalon given for cough. CXR (-) for infiltrate, no antibiotics needed. Patient medically cleared. 15:25- Patient accepted by Dr. Mcnulty for psychiatric admission. Disposition - Disposition Disposition: HOSPITALIZED Disposition Time: 15:25 Condition: STABLE - Clinical Impression Clinical Impression: Schizoaffective disorder - Scribe Statement The provider has reviewed the documentation as recorded by the Scribe (Curtis Ortiz) All medical record entries made by the Scribe were at my direction and personally dictated by me. I have reviewed the chart and agree that the record accurately reflects my personal performance of the history, physical exam, medical decision making, and the department course for this patient. I have also personally directed, reviewed, and agree with the discharge instructions and disposition. Decision To Admit - Pt Status Changed To: Hospital Disposition Of: Inpatient - Admit Certification Admit to Inpatient:: After my assessment, the patient will require hospitalization for at least two midnights. This is because of the severity of symptoms shown, intensity of services needed, and/or the medical risk in this patient being treated as an outpatient. - InPatient: Physician Admission Certification: I certify that this patient requires 2 or more midnights of care for the following reason:: see notes - . Bed Request Type: Psychiatry Admitting Physician: Sean Mcnulty Patient Diagnosis: Schizoaffective disorder
--- NOTE | 2017-07-29 16:14 | PCM.BM ---
<Michell Boucher - Last Filed: 07/29/17 16:12> Treatment Plan Problems - Problems identified on initial assessmt Depression Date Initiated: 07/29/17 Time Initiated: 16:12 Assessment reference: NA Status: Active Auditory Hallucinations Date Initiated: 07/29/17 Time Initiated: 16:12 Assessment reference: NA Status: Active Treatment assets and liabiliti Patient Assests: cooperative, motivated, self-reliant, ADL independent, negotiates basic needs Patient Liabilities: live alone, financial problems, poor support system, legal issue - Milieu Protocol Maintain good personal hygiene: daily Encourage regular showers, daily Remind patient to perform daily oral care Conduct patient checks and document Observation sheet: Q15 minutes Maintain personal safety: every shift Educate patient to report safety concerns to staff, every shift Monitor environment for contraband/sharps Medication safety: Monitor for expected outcome, potential side effects: every shift, Assess barriers to learning: every shift, Assess readiness for medication education: every shift <Danielle Robb - Last Filed: 07/30/17 14:33> Family Contact Family involvement: Famliy/SO not involved Discharge/Continuing Care - Education Needs Education Needs: Patient Medication, Patient Coping Skills, Patient Placement options, Patient Community resources - Discharge Discharge Criteria: Tolerates medication w/o severe side effects, Reduction of target symptoms Discharge to:: [facility] - Treatment Team Participation Discussed with Family/SO: No Was Patient/Family/SO present at Treatment Team Meeting: Yes <Sean Mcnulty - Last Filed: 08/07/17 11:12> - Diagnosis (1) Schizoaffective disorder, bipolar type Status: Acute Interventions: 08/07/17 11:12 * Assess/adjust medications daily and /or as needed * See patient on an individual basis 7x/week to assess status of hallucinations * Discuss risks, benefits, side effects and alternatives of medications *
[2017-07-29] MEDS: guaiFENesin DM 200 mg-20 mg/10 ml UD PO PRN (21:20)
[2017-07-30] MEDS: guaiFENesin DM 200 mg-20 mg/10 ml UD PO PRN ×3 (04:54→16:11)
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
[2017-07-30] MEDS: Divalproex 500 mg DR Tab PO SCH ×2 (09:49→17:04)
[2017-07-31] MEDS: guaiFENesin DM 200 mg-20 mg/10 ml UD PO PRN ×4 (00:10→15:53)
[2017-07-31] MEDS: Divalproex 500 mg DR Tab PO SCH ×2 (09:04→17:08)
--- NOTE | 2017-07-31 12:50 | PCM.PYCHPN ---
Psychiatric Progress Note - Psychiatric Progress Note Patient seen today, length of contact: 16 min Patient Chief Complaint: I need my hat.' Problems Identified/Issues Discussed: Patient seen and evaluated, chart reviewed and discussed with the nurse. Patient remained disorganized and internally preoccupied. He remained very irritable and agitated. Patient still appears paranoid and delusional. Patient remained isolated, confined and withdrawn. He still appears disheveled and unkempt. Patient is compliant with medications and denies any side effects. Symptoms are improving but need more time to stabilize. Support and psychoeducation given. Medication Change: Yes Medical Record Reviewed: Yes Mental Status Examination - Cognitive Function Orientation: Person, Place, Situation, Time Memory: Intact Attention: Poor Concentration: Poor Association: Loose Fund of Knowledge: Poor - Mood Mood: Anxious - Affect Affect: Broad - Speech Speech: Pressured - Formal Thought Process Formal Thought Process: Delusions, Paranoia, Loosening of associations - Suicidal Ideation Suicidal Ideation: No - Homicidal Ideation Homicidal Ideation: No Goal/Treatment Plan - Goal/Treatment Plan Need for Continued Stay: Severe depression anxiety, Severe functional impairment Progress Toward Problem(s) and Goals/Treatment Plan: Schizoaffective disorder Bipolar type Supportive therapy, group therapy, individual therapy CBT Psychoeducation Haldol 10 mg by mouth twice a day Cogentin 1 mg by mouth twice a day Depakote 500 mg by mouth twice a day Klonopin 1 mg PO TID Trazodone 50 mg by mouth daily at bedtime Hydroxyzine 25 mg PO Q6hr prn - Smoking Cessation Smoking Cessation Initiated: No
[2017-08-01] MEDS: guaiFENesin DM 200 mg-20 mg/10 ml UD PO PRN ×2 (00:22→09:40)
[2017-08-01] MEDS: Divalproex 500 mg DR Tab PO SCH ×2 (09:40→17:28)
[2017-08-01] MEDS: Aluminum Hydroxide/Magnesium Hydroxide Susp (30 mL) PO PRN (15:46)
[2017-08-02] MEDS: Divalproex 500 mg DR Tab PO SCH ×2 (09:59→17:15)
[2017-08-03] MEDS: Divalproex 500 mg DR Tab PO SCH ×2 (09:19→17:59)
[2017-08-03] MEDS: guaiFENesin DM 200 mg-20 mg/10 ml UD PO PRN (09:20)
--- NOTE | 2017-08-03 19:53 | PCM.PYCHPN ---
Psychiatric Progress Note - Psychiatric Progress Note Patient seen today, length of contact: 16 min Patient Chief Complaint: I am feeling little better.' Problems Identified/Issues Discussed: Patient seen and evaluated, chart reviewed and discussed with the nurse. Staff reports that pt was less irritable and less agitated. However, he remained disorganized and internally preoccupied. He still appears paranoid and delusional. He still appears disheveled and unkempt. Patient remained isolated, confined and withdrawn. Patient is compliant with medications and denies any side effects. Symptoms are improving but need more time to stabilize. Support and psychoeducation given. Medication Change: Yes Medical Record Reviewed: Yes Mental Status Examination - Cognitive Function Orientation: Person, Place, Situation, Time Memory: Intact Attention: Poor Concentration: Poor Association: Loose Fund of Knowledge: Poor - Mood Mood: Anxious - Affect Affect: Broad - Speech Speech: Pressured - Formal Thought Process Formal Thought Process: Hallucinations, Delusions, Paranoia, Loosening of associations - Suicidal Ideation Suicidal Ideation: No - Homicidal Ideation Homicidal Ideation: No Goal/Treatment Plan - Goal/Treatment Plan Need for Continued Stay: Severe depression anxiety, Severe functional impairment Progress Toward Problem(s) and Goals/Treatment Plan: Schizoaffective disorder Bipolar type Supportive therapy, group therapy, individual therapy CBT Psychoeducation Haldol 10 mg by mouth twice a day Cogentin 1 mg by mouth twice a day Depakote 500 mg by mouth twice a day Klonopin 1 mg PO TID Trazodone 50 mg by mouth daily at bedtime Hydroxyzine 25 mg PO Q6hr prn - Smoking Cessation Smoking Cessation Initiated: No
[2017-08-04] MEDS: guaiFENesin DM 200 mg-20 mg/10 ml UD PO PRN ×2 (02:03→18:08)
--- NOTE | 2017-08-04 08:10 | PCM.PYCHPN ---
Psychiatric Progress Note - Psychiatric Progress Note Patient seen today, length of contact: 16 min Patient Chief Complaint: ILAN COLD I WANT TO GO TO A STATE HOSPITAL I'M COMMITTED Problems Identified/Issues Discussed: PROCESS OF TRANSFER TO A STATE HOSPITAL TREATMENT OF URI Medical Problems: URI Diagnostic Results: REVIEWED DSM 5 Symptoms Update: POOR INSIGHT AND JUDEMENT Medication Change: No Medical Record Reviewed: Yes Mental Status Examination - Cognitive Function Orientation: Person, Place, Situation, Time Memory: Intact Attention: Poor Concentration: Poor Association: Loose Fund of Knowledge: Poor - Mood Mood: Anxious - Affect Affect: Broad - Speech Speech: Pressured - Formal Thought Process Formal Thought Process: Delusions, Paranoia, Loosening of associations - Suicidal Ideation Suicidal Ideation: No - Homicidal Ideation Homicidal Ideation: No Goal/Treatment Plan - Goal/Treatment Plan Need for Continued Stay: Severe depression anxiety, Discharge may exacerbated symptoms, Severe functional impairment Progress Toward Problem(s) and Goals/Treatment Plan: SCHIZOAFFECTIVE DISORDER [place] - Smoking Cessation Smoking Cessation Initiated: No
--- NOTE | 2017-08-04 08:15 | PCM.PYCHPN ---
Psychiatric Progress Note - Psychiatric Progress Note Patient seen today, length of contact: 16 min Patient Chief Complaint: WHEN IS THE CLEANING SPECIALIST COMING? I HAVE A BRAIN TUMOR Problems Identified/Issues Discussed: REALITY TESTING Medical Problems: NOTHING ACUTE Diagnostic Results: REVIEWED Medication Change: No Medical Record Reviewed: Yes Mental Status Examination - Cognitive Function Orientation: Person, Place, Situation, Time Memory: Intact Attention: Poor Concentration: Poor Association: Loose Fund of Knowledge: Poor - Mood Mood: Anxious - Affect Affect: Broad - Speech Speech: Pressured - Formal Thought Process Formal Thought Process: Delusions, Paranoia, Loosening of associations - Suicidal Ideation Suicidal Ideation: No - Homicidal Ideation Homicidal Ideation: No Goal/Treatment Plan - Goal/Treatment Plan Need for Continued Stay: Severe depression anxiety, Discharge may exacerbated symptoms, Severe functional impairment Progress Toward Problem(s) and Goals/Treatment Plan: SCHIZOAFFECTIVE DISORDER [place] - Smoking Cessation Smoking Cessation Initiated: No
[2017-08-04] MEDS: Divalproex 500 mg DR Tab PO SCH ×2 (10:40→17:11)
[2017-08-04] MEDS: Aluminum Hydroxide/Magnesium Hydroxide Susp (30 mL) PO PRN (14:12)
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
[2017-08-05] MEDS: Divalproex 500 mg DR Tab PO SCH ×2 (09:34→17:18)
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
[2017-08-05] MEDS: Aluminum Hydroxide/Magnesium Hydroxide Susp (30 mL) PO PRN ×2 (16:32→17:18)
[2017-08-05] MEDS: guaiFENesin DM 200 mg-20 mg/10 ml UD PO PRN (16:32)
[2017-08-06] MEDS: Divalproex 500 mg DR Tab PO SCH ×2 (09:44→17:01)
--- NOTE | 2017-08-06 12:38 | PCM.PYCHPN ---
Psychiatric Progress Note - Psychiatric Progress Note Patient seen today, length of contact: 16 min Patient Chief Complaint: I am feeling little better.' Problems Identified/Issues Discussed: Patient seen and evaluated, chart reviewed and discussed with the nurse. Staff mentioned he was very restless during the night and could not sleep. Patient states he is in good spirits at the moment and not depressed. Reports he is feeling a bit anxious and like his thoughts are racing. He is feeling off balance at the moment as if his medications are not sufficient. He feels nervous that his medications will wear off in the Middle of the day. This fear about his medications is what is making his anxiety worse and causing his "head to spin." He feels as if he cannot stop talking. Patient reports feeling as if someone is going to hurt him. Denies any auditory or visual hallucinations, hearing voices at this current time, thoughts of hurting himself or others. He still appears disheveled and unkempt. Patient appears happy and very talkative with tangential speech Patient is compliant with medications and denies any side effects. Symptoms are improving but need more time to stabilize. Support and psychoeducation given. Medication Change: Yes (haldol decanoate) Medical Record Reviewed: Yes Mental Status Examination - Cognitive Function Orientation: Person, Place, Situation, Time Memory: Intact Attention: Poor Concentration: Poor Association: Loose Fund of Knowledge: Poor - Mood Mood: Anxious - Affect Affect: Broad - Speech Speech: Pressured - Formal Thought Process Formal Thought Process: Hallucinations, Delusions, Paranoia, Loosening of associations - Suicidal Ideation Suicidal Ideation: No - Homicidal Ideation Homicidal Ideation: No Goal/Treatment Plan - Goal/Treatment Plan Need for Continued Stay: Severe depression anxiety, Severe functional impairment Progress Toward Problem(s) and Goals/Treatment Plan: Schizoaffective disorder Bipolar type Supportive therapy, group therapy, individual therapy CBT Psychoeducation Haldol 10 mg by mouth twice a day Cogentin 1 mg by mouth twice a day Depakote 500 mg by mouth twice a day Klonopin 1 mg PO TID Trazodone 50 mg by mouth daily at bedtime Hydroxyzine 25 mg PO Q6hr prn Haldol Decanoate 50 mg I/M - Smoking Cessation Smoking Cessation Initiated: No
[2017-08-06] MEDS: guaiFENesin DM 200 mg-20 mg/10 ml UD PO PRN (13:19)
[2017-08-06] MEDS: Vitamins A & D Oint UD Foilpak TOP PRN (14:57)
[2017-08-07] MEDS: Divalproex 500 mg DR Tab PO SCH ×2 (10:22→17:33)
--- NOTE | 2017-08-07 11:11 | PCM.PYCHPN ---
Psychiatric Progress Note - Psychiatric Progress Note Patient seen today, length of contact: 16 min Patient Chief Complaint: I am feeling little better.' Problems Identified/Issues Discussed: Patient seen and evaluated, chart reviewed and discussed with the nurse. Patient still appears paranoid and delusional. However he states that he is in good spirits at the moment. He still reports feeling off balance at the moment as if his medications are not sufficient. He appears more organized than before but remained internally preoccupied. He remained irritable and agitated and still [facility]. However he reports his voices are calm down and denies any visual hallucinations. He still appears disheveled and unkempt. Patient is compliant with medications and denies any side effects. Symptoms are improving but need more time to stabilize. Support and psychoeducation given. Medication Change: Yes (haldol decanoate) Medical Record Reviewed: Yes Mental Status Examination - Cognitive Function Orientation: Person, Place, Situation, Time Memory: Intact Attention: WNL Concentration: Poor Association: Loose Fund of Knowledge: WNL - Mood Mood: Anxious - Affect Affect: Broad - Speech Speech: Pressured - Formal Thought Process Formal Thought Process: Hallucinations, Delusions, Paranoia, Loosening of associations - Suicidal Ideation Suicidal Ideation: No - Homicidal Ideation Homicidal Ideation: No Goal/Treatment Plan - Goal/Treatment Plan Need for Continued Stay: Severe depression anxiety, Severe functional impairment Progress Toward Problem(s) and Goals/Treatment Plan: Schizoaffective disorder Bipolar type Supportive therapy, group therapy, individual therapy CBT Psychoeducation Haldol 10 mg by mouth twice a day Cogentin 1 mg by mouth twice a day Depakote 500 mg by mouth twice a day Klonopin 1 mg PO BID Trazodone 50 mg by mouth daily at bedtime Hydroxyzine 25 mg PO Q6hr prn Haldol Decanoate 50 mg I/M - Smoking Cessation Smoking Cessation Initiated: No
[2017-08-07] MEDS: guaiFENesin DM 200 mg-20 mg/10 ml UD PO PRN (17:44)
[2017-08-07] MEDS: Aluminum Hydroxide/Magnesium Hydroxide Susp (30 mL) PO PRN (17:44)
[2017-08-08] MEDS: guaiFENesin DM 200 mg-20 mg/10 ml UD PO PRN (05:43)
[2017-08-08] MEDS: Divalproex 500 mg DR Tab PO SCH ×2 (10:12→17:49)
--- NOTE | 2017-08-08 19:14 | PCM.PYCHPN ---
Psychiatric Progress Note - Psychiatric Progress Note Patient seen today, length of contact: 16 min Patient Chief Complaint: "My sleep is better" Problems Identified/Issues Discussed: Patient seen and evaluated, chart reviewed and discussed with the nurse. Patient still appears paranoid and delusional. However he states that he is in good spirits at the moment. He appears more organized than before but remained internally preoccupied. He remained irritable and agitated and still demanding to be placed in [facility]. However he reports his voices are calm down and denies any visual hallucinations. He still appears disheveled and unkempt. Patient is compliant with medications and denies any side effects. Symptoms are improving but need more time to stabilize. Medication Change: Yes (haldol decanoate) Medical Record Reviewed: Yes Mental Status Examination - Cognitive Function Orientation: Person, Place, Situation, Time Memory: Intact Attention: WNL Concentration: Poor Association: Loose Fund of Knowledge: WNL Decription of patient's judgement and insights: Limited/limited Addtional comments: Pt is calm and cooperative - Mood Mood: Anxious - Affect Affect: Broad - Speech Speech: Pressured - Formal Thought Process Formal Thought Process: Hallucinations, Delusions, Paranoia, Loosening of associations Psychotic Thoughts and Behaviors: pt appeared internally preoccupied and responding to stimuli - Suicidal Ideation Suicidal Ideation: No Plan: denied - Homicidal Ideation Homicidal Ideation: No Plan: denied Goal/Treatment Plan - Goal/Treatment Plan Need for Continued Stay: Severe depression anxiety, Severe functional impairment Progress Toward Problem(s) and Goals/Treatment Plan: Continue current treatment and management as per primary team. Therapy in milieu. Recommend to continue individual and group therapy. Estimated Date of D/C: 08/12/17 - Smoking Cessation Smoking Cessation Initiated: Yes
[2017-08-09] MEDS: guaiFENesin DM 200 mg-20 mg/10 ml UD PO PRN ×2 (05:03→17:16)
[2017-08-09] MEDS: Divalproex 500 mg DR Tab PO SCH ×2 (10:16→17:06)
--- NOTE | 2017-08-09 17:04 | PCM.PYCHPN ---
Psychiatric Progress Note - Psychiatric Progress Note Patient seen today, length of contact: 16 min Patient Chief Complaint: "I'm feeling better" Problems Identified/Issues Discussed: Patient seen and evaluated, chart reviewed and discussed with the nurse. Patient appears less paranoid and delusional. He appears more organized than before but remained internally preoccupied. He remained irritable and agitated and still demanding to be [facility]. However he reports his voices are calm down and denies any visual hallucinations. He still appears disheveled and unkempt. Patient is compliant with medications and denies any side effects. Symptoms are improving but need more time to stabilize. Medication Change: Yes (haldol decanoate) Medical Record Reviewed: Yes Mental Status Examination - Cognitive Function Orientation: Person, Place, Situation, Time Memory: Intact Attention: WNL Concentration: Poor Association: Loose Fund of Knowledge: WNL Decription of patient's judgement and insights: Limited/limited - Mood Mood: Anxious - Affect Affect: Broad - Speech Speech: Appropriate - Formal Thought Process Formal Thought Process: Hallucinations, Delusions, Paranoia, Loosening of associations Psychotic Thoughts and Behaviors: pt appeared internally preoccupied and responding to stimuli - Suicidal Ideation Suicidal Ideation: No Plan: denied - Homicidal Ideation Homicidal Ideation: No Plan: denied Goal/Treatment Plan - Goal/Treatment Plan Need for Continued Stay: Severe depression anxiety, Severe functional impairment Progress Toward Problem(s) and Goals/Treatment Plan: Continue current treatment and management as per primary team. Therapy in milieu. Recommend to continue individual and group therapy. Estimated Date of D/C: 08/12/17 - Smoking Cessation Smoking Cessation Initiated: Yes
[2017-08-09] MEDS: Vitamins A & D Oint UD Foilpak TOP PRN (17:06)
[2017-08-10] MEDS: Divalproex 500 mg DR Tab PO SCH ×2 (09:53→17:06)
--- NOTE | 2017-08-10 11:15 | PCM.PYCHPN ---
Psychiatric Progress Note - Psychiatric Progress Note Patient seen today, length of contact: 16 min Patient Chief Complaint: I am feeling little better.' Problems Identified/Issues Discussed: Patient seen and evaluated, chart reviewed and discussed with the nurse. Patient still appears paranoid and delusional. However he states that he is in good spirits at the moment. He still reports feeling off balance at the moment as if his medications are not sufficient. He appears more organized than before but remained internally preoccupied. He remained irritable and agitated and still [facility]. However he reports his voices are calm down and denies any visual hallucinations. He still appears disheveled and unkempt. Patient is compliant with medications and denies any side effects. Symptoms are improving but need more time to stabilize. Support and psychoeducation given. Medication Change: Yes (haldol decanoate) Medical Record Reviewed: Yes Mental Status Examination - Cognitive Function Orientation: Person, Place, Situation, Time Memory: Intact Attention: WNL Concentration: Poor Association: Loose Fund of Knowledge: WNL - Mood Mood: Anxious - Affect Affect: Broad - Speech Speech: Appropriate - Formal Thought Process Formal Thought Process: Hallucinations, Delusions, Paranoia, Loosening of associations - Suicidal Ideation Suicidal Ideation: No - Homicidal Ideation Homicidal Ideation: No Goal/Treatment Plan - Goal/Treatment Plan Need for Continued Stay: Severe depression anxiety, Severe functional impairment Progress Toward Problem(s) and Goals/Treatment Plan: Schizoaffective disorder Bipolar type Supportive therapy, group therapy, individual therapy CBT Psychoeducation Haldol 10 mg by mouth twice a day Cogentin 1 mg by mouth twice a day Depakote 500 mg by mouth twice a day Klonopin 1 mg PO BID Trazodone 50 mg by mouth daily at bedtime Hydroxyzine 25 mg PO Q6hr prn Haldol Decanoate 50 mg I/M Estimated Date of D/C: 08/12/17
[2017-08-10] MEDS: Aluminum Hydroxide/Magnesium Hydroxide Susp (30 mL) PO PRN (16:10)
[2017-08-10] MEDS: guaiFENesin DM 200 mg-20 mg/10 ml UD PO PRN (16:10)
[2017-08-11] MEDS: guaiFENesin DM 200 mg-20 mg/10 ml UD PO PRN (04:17)
[2017-08-11 06:19] VITALS: O2SAT 96
[2017-08-11] MEDS: Divalproex 500 mg DR Tab PO SCH ×2 (10:27→17:19)
[2017-08-11] MEDS: Aluminum Hydroxide/Magnesium Hydroxide Susp (30 mL) PO PRN (17:21)
[2017-08-12] MEDS: Divalproex 500 mg DR Tab PO SCH ×3 (09:55→18:27)
[2017-08-12] MEDS: guaiFENesin DM 200 mg-20 mg/10 ml UD PO PRN ×2 (09:56→18:23)
[2017-08-12] MEDS: Aluminum Hydroxide/Magnesium Hydroxide Susp (30 mL) PO PRN ×2 (09:58→18:23)
[2017-08-13 06:23] VITALS: BP 107/64; PULSE 69; RESP 18; TEMP 98.2
[2017-08-13] MEDS: guaiFENesin DM 200 mg-20 mg/10 ml UD PO PRN (10:14)
[2017-08-13] MEDS: Divalproex 500 mg DR Tab PO SCH (10:14)
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
== END 2017-08-13 12:48 | disposition home or self-care (01) | DRG 430 ==
LOC: C.ER 12:10 → C.5E 15:25
PROVIDERS: ADMIT Psychiatry & Neurology Psychiatry; ATTEND Psychiatry & Neurology Psychiatry
PROC: GZHZZZZ Group Psychotherapy (ICD-10-PCS; principal; 2017-07-29)
PROC: GZ58ZZZ Individual Psychotherapy, Cognitive-Behavioral (ICD-10-PCS; 2017-07-29)
PROC: GZ56ZZZ Individual Psychotherapy, Supportive (ICD-10-PCS; 2017-07-29)
DX: F25.0 Schizoaffective disorder, bipolar type (principal); Z59.0 Homelessness; E78.00 Pure hypercholesterolemia, unspecified; F41.9 Anxiety disorder, unspecified; I10 Essential (primary) hypertension; J06.9 Acute upper respiratory infection, unspecified

== ENCOUNTER 2018-10-17 14:16 | Inpatient (IN) | payer MEDICAID ==
[2018-10-17 14:16] VITALS: BMI 29.1
--- NOTE | 2018-10-17 14:35 | C.PDOC ---
History Of Present Illness 37 y/o male, with history of schizophrenia, comes in with racing thoughts. Patient has been seen here several times for similar. He denies any suicidal or homicidal ideation. Patient has no other medical complaints. Time Seen by Provider: 10/17/18 14:27 Chief Complaint (Nursing): Psychiatric Evaluation History Per: Patient History/Exam Limitations: no limitations Onset/Duration Of Symptoms: Days Current Symptoms Are (Timing): Still Present Past Medical History Reviewed: Historical Data, Nursing Documentation, Vital Signs Vital Signs: Last Vital Signs Temp 98.3 F 10/17/18 14:19 Pulse 138 H 10/17/18 14:19 Resp 20 10/17/18 14:19 BP 147/87 10/17/18 14:19 Pulse Ox 97 10/17/18 14:19 - Medical History PMH: Anxiety, Depression, HTN, Hypercholesterolemia, Schizophrenia Denies: Diabetes, Hepatitis, HIV, Chronic Kidney Disease, Seizures, Sexually Transmitted Disease - [facility] Procedures GROUP PSYCHOTHERAPY (07/29/17) INDIVIDUAL PSYCHOTHERAPY, COGNITIVE-BEHAVIORAL (07/29/17) INDIVIDUAL PSYCHOTHERAPY, SUPPORTIVE (07/29/17) Family History: States: No Known Family Hx - Social History Hx Alcohol Use: Yes Hx Substance Use: No - Immunization History Hx Tetanus Toxoid Vaccination: No Hx Influenza Vaccination: No Hx Pneumococcal Vaccination: No Review Of Systems Except As Marked, All Systems Reviewed And Found Negative. Psych: Positive for: Other (Schizophrenia). Negative for: Suicidal ideation (or homicidal ideation) Physical Exam - Physical Exam Appears: Non-toxic, No Acute Distress, Other (Bizarre, anxious appearing) Skin: Warm, Dry Head: Atraumatic, Normacephalic Eye(s): bilateral: Normal Inspection Oral Mucosa: Moist Neck: Supple Cardiovascular: Rhythm Regular, No Murmur Respiratory: Normal Breath Sounds, No Rales, No Rhonchi, No Wheezing Gastrointestinal/Abdominal: Soft, No Tenderness Extremity: No Pedal Edema Extremity: Bilateral: Atraumatic, Normal Color And Temperature, Normal ROM Neurological/Psych: Oriented x3, Normal Speech ED Course And Treatment - Laboratory Results Result Diagrams: 10/17/18 15:59 10/17/18 15:59 ECG: Interpreted By Me, Viewed By Me ECG Rhythm: Sinus Tachycardia Rate From EC O2 Sat by Pulse Oximetry: 97 (RA) Pulse Ox Interpretation: Normal Medical Decision Making Medical Decision Making: pending medical clearnace Plan: --EKG --Bloodwork --UA labs neg medically cleard and accepted Disposition - Disposition Disposition: HOSPITALIZED Disposition Time: 19:30 Condition: STABLE - Clinical Impression Clinical Impression: Schizoaffective disorder - Scribe Statement The provider has reviewed the documentation as recorded by the Estelitaibilene Shafer Provider Attestation: All medical record entries made by the Estelitaibe were at my direction and personally dictated by me. I have reviewed the chart and agree that the record accurately reflects my personal performance of the history, physical exam, medical decision making, and the department course for this patient. I have also personally directed, reviewed, and agree with the discharge instructions and disposition. Decision To Admit - Pt Status Changed To: Hospital Disposition Of: Inpatient - Admit Certification Admit to Inpatient:: After my assessment, the patient will require hospitalization for at least two midnights. This is because of the severity of symptoms shown, intensity of services needed, and/or the medical risk in this patient being treated as an outpatient. - InPatient: Physician Admission Certification: I certify that this patient requires 2 or more midnights of care for the following reason:: needs pysch - . Bed Request Type: Psychiatry Admitting Physician: Sean Mcnulty Patient Diagnosis: Schizoaffective disorder
[2018-10-17 16:12] LABS: BASO % 0.3 % (0.0-2.0); EOS # 0.1 K/uL (0.0-0.7); EOS % 0.8 % (0.0-4.0); HEMOGLOBIN 12.7 g/dL (12.0-18.0); LYMPH # 2.3 K/uL (1.0-4.3); LYMPH % 27.7 % (20.0-40.0); MEAN CELL VOLUME 76.9 fL (80.0-94.0); MEAN CORPUSCULAR HEMOGLOBIN 26.4 pg (27.0-31.0); MEAN CORPUSCULAR HGB CONC 34.3 g/dL (33.0-37.0); MEAN PLATELET VOLUME 8.2 fL (7.2-11.7); MONO # 0.8 K/uL (0.0-0.8); MONO % 9.8 % (0.0-10.0); NEUT % 61.4 % (50.0-75.0); RBC 4.82 Mil/uL (4.40-5.90); RED CELL DISTRIBUTION WIDTH 16.4 % (11.5-14.5); WHITE BLOOD COUNT 8.2 K/uL (4.8-10.8)
[2018-10-17 16:17] LABS: SQUAMOUS EPITHIAL 1 /hpf (0-5); URINE BACTERIA FEW (<OCC); URINE BILIRUBIN NEGATIVE (NEGATIVE); URINE BLOOD NEGATIVE (NEGATIVE); URINE CLARITY Hazy (Clear); URINE GLUCOSE (UA) NORMAL (Normal); URINE LEUKOCYTE ESTERASE NEG Leu/uL (Negative); URINE PROTEIN 2+ mg/dL (NEGATIVE)
[2018-10-17 16:19] LABS: ACETAMINOPHEN < 10.0 ug/mL (10.0-30.0); SALICYLATE < 1.0 {null, mg/dL 1}
[2018-10-17 16:23] LABS: ALB/GLOB RATIO 1.6 (1.0-2.1); ALBUMIN 4.7 g/dL (3.5-5.0); ALT/SGPT 78 U/L (21-72); AST/SGOT 75 U/L (17-59); BLOOD UREA NITROGEN 12 mg/dL (9-20); CALCIUM 9.4 mg/dl (8.6-10.4); GFR NON-AFRICAN AMERICAN > 60
[2018-10-17 16:28] LABS: URINE COLOR YELLOW (YELLOW)
[2018-10-17 16:42] LABS: BARBITURATES, UR NEGATIVE (NEGATIVE); BENZODIAZEPINES, UR NEGATIVE (NEGATIVE); OPIATES, UR NEGATIVE (NEGATIVE); PHENCYCLIDINE, UR NEGATIVE (NEGATIVE)
[2018-10-17 16:47] LABS: VALPROIC ACID 24.4 ug/mL (50.0-100.0)
[2018-10-17 21:30] VITALS: O2SAT 97
--- NOTE | 2018-10-17 22:16 | PCM.BM ---
<Tyrone Atwood - Last Filed: 10/17/18 22:13> Treatment Plan Problems - Problems identified on initial assessmt Medication nonadherence Date Initiated: 10/17/18 Time Initiated: 22:14 Assessment reference: NA Status: Active Ineffective coping Date Initiated: 10/17/18 Time Initiated: 22:14 Assessment reference: NA Status: Active Treatment assets and liabiliti Patient Assests: cooperative, motivated, self-reliant, ADL independent, negotiates basic needs Patient Liabilities: live alone (Homeless), financial problems (On disability), substance abuse (Cannabis), medical problems (Hypertension) - Milieu Protocol Maintain good personal hygiene: daily Encourage regular showers, daily Remind patient to perform daily oral care, every shift Assist patient to perform ADL's Conduct patient checks and document Observation sheet: Q15 minutes (For safety) Maintain personal safety: every shift Educate patient to report safety concerns to staff, every shift Monitor environment for contraband/sharps Medication safety: Monitor for expected outcome, potential side effects: every shift, Assess barriers to learning: every shift, Assess readiness for medication education: every shift <Sean Mcnulty - Last Filed: 10/18/18 10:14> - Diagnosis (1) Schizoaffective disorder Status: Acute Interventions: 10/18/18 10:14 * Assess/adjust medications daily and /or as needed * See patient on an individual basis 7x/week to assess status of hallucinations * Discuss risks, benefits, side effects and alternatives of medications * <Josi Vora - Last Filed: 10/20/18 15:55> Family Contact Family involvement: Patient does not wish Family/SO involvement Family contact: Patient declines to allow family contact at present - Goals for Treatment Patient goals for treatment: "I want to retrun to the PACT Team." Discharge/Continuing Care - Education Needs Education Needs: Patient Medication, Patient Diagnosis/Disease Process, Patient Coping Skills, Patient Placement options, Patient Community resources - Discharge Discharge Criteria: Free of Suicidal thoughts, Free of agitation, Normal sleep pattern, Ability to care for self, Reduction of target symptoms Discharge to:: Group Home - Treatment Team Participation Discussed with Family/SO: No Was Patient/Family/SO present at Treatment Team Meeting: Yes
[2018-10-17] MEDS: Divalproex 500 mg DR Tab PO SCH (22:47)
[2018-10-18] MEDS: Divalproex 500 mg DR Tab PO SCH (09:36)
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
[2018-10-18] MEDS: Divalproex 250 mg DR Tab PO SCH ×2 (10:34→17:20)
[2018-10-18] MEDS ORDERED: Divalproex 250 mg DR Tab PO ONE (11:15)
[2018-10-19] MEDS ORDERED: Influenza Vaccine 60 mcg/0.5 mL SYR (4YR UP) IM ONE (10:00)
[2018-10-19] MEDS ORDERED: Pneumococcal 23-Valent Vaccine IM ONE (10:00)
[2018-10-19] MEDS: Divalproex 250 mg DR Tab PO SCH ×2 (10:12→17:17)
--- NOTE | 2018-10-19 10:53 | PCM.PYCHPN ---
Psychiatric Progress Note - Psychiatric Progress Note Patient seen today, length of contact: 15 min Patient Chief Complaint: I was hearing voices and feeling irritable. Problems Identified/Issues Discussed: Patient seen and evaluated, chart reviewed and discussed with the nurse. Patient remained disorganized and internally preoccupied. He still reports of hearing voices. Patient still appears paranoid and delusional. He remained irritable and agitated. He is taking medication and denies any side effects. Symptoms are improving but needs more time for stabilization. Supportive therapy and psychoeducation were given. Medication Change: Yes Medical Record Reviewed: Yes Mental Status Examination - Cognitive Function Orientation: Person, Place, Situation, Time Memory: Intact Attention: Poor Concentration: Poor Association: Loose Fund of Knowledge: Poor - Mood Mood: Anxious - Affect Affect: Broad - Speech Speech: Pressured - Formal Thought Process Formal Thought Process: Hallucinations, Delusions, Paranoia, Loosening of associations - Suicidal Ideation Suicidal Ideation: No - Homicidal Ideation Homicidal Ideation: No Goal/Treatment Plan - Goal/Treatment Plan Need for Continued Stay: Remain at risks for inpatient hospitalization Progress Toward Problem(s) and Goals/Treatment Plan: Schizoaffective disorder bipolar type -CBT -Psychiatry -Supportive therapy and group therapy -Seroquel for insomnia -Haldol for psychosis -Depakote for mood -Klonopin for anxiety
[2018-10-20] MEDS: Divalproex 250 mg DR Tab PO SCH ×2 (10:20→17:58)
[2018-10-21] MEDS: Divalproex 250 mg DR Tab PO SCH ×2 (09:57→17:21)
--- NOTE | 2018-10-21 10:47 | PCM.PYCHPN ---
Psychiatric Progress Note - Psychiatric Progress Note Patient seen today, length of contact: 15 min Patient Chief Complaint: I m still hearing voices. Problems Identified/Issues Discussed: Patient seen and evaluated, chart reviewed and discussed with the nurse. Patient remained disorganized and internally preoccupied. He still reports of hearing voices. Patient still appears paranoid and delusional. He remained irritable and agitated. He is taking medication and denies any side effects. Symptoms are improving but needs more time for stabilization. Supportive therapy and psychoeducation were given. Medication Change: Yes Medical Record Reviewed: Yes Mental Status Examination - Cognitive Function Orientation: Person, Place, Situation, Time Memory: Intact Attention: Poor Concentration: Poor Association: Loose Fund of Knowledge: Poor - Mood Mood: Anxious - Affect Affect: Broad - Speech Speech: Pressured - Formal Thought Process Formal Thought Process: Hallucinations, Delusions, Paranoia, Loosening of associations - Suicidal Ideation Suicidal Ideation: No - Homicidal Ideation Homicidal Ideation: No Goal/Treatment Plan - Goal/Treatment Plan Need for Continued Stay: Remain at risks for inpatient hospitalization Progress Toward Problem(s) and Goals/Treatment Plan: Schizoaffective disorder bipolar type -CBT -Psychiatry -Supportive therapy and group therapy -Seroquel for insomnia -Haldol for psychosis -Depakote for mood -Klonopin for anxiety
--- NOTE | 2018-10-22 09:45 | PCM.PYCHPN ---
Psychiatric Progress Note - Psychiatric Progress Note Patient seen today, length of contact: 15 min Patient Chief Complaint: My anxiety is getting little better.' Problems Identified/Issues Discussed: Patient seen and evaluated, chart reviewed and discussed with the nurse. Today patient appeared somewhat more organized and less internally preoccupied than before. He reports some improvement in the voices and paranoia. He remained irritable and agitated. He is taking medication and denies any side effects. Symptoms are improving but needs more time for stabilization. Supportive therapy and psychoeducation were given. Medication Change: Yes Medical Record Reviewed: Yes Mental Status Examination - Cognitive Function Orientation: Person, Place, Situation, Time Memory: Intact Attention: WNL Concentration: WNL Association: Loose Fund of Knowledge: Poor - Mood Mood: Anxious - Affect Affect: Broad - Speech Speech: Pressured - Formal Thought Process Formal Thought Process: Hallucinations, Delusions, Paranoia, Loosening of associations - Suicidal Ideation Suicidal Ideation: No - Homicidal Ideation Homicidal Ideation: No Goal/Treatment Plan - Goal/Treatment Plan Need for Continued Stay: Remain at risks for inpatient hospitalization Progress Toward Problem(s) and Goals/Treatment Plan: Schizoaffective disorder bipolar type -CBT -Psycho education -Supportive therapy and group therapy -Seroquel for insomnia -Haldol for psychosis -Depakote for mood -Klonopin for anxiety
[2018-10-22] MEDS: Divalproex 500 mg DR Tab PO SCH (10:05)
[2018-10-22] MEDS: guaiFENesin 100 mg/5 ml Syrup UD PO PRN (20:10)
[2018-10-22] MEDS: Divalproex 250 mg DR Tab PO SCH (21:45)
[2018-10-23] MEDS: guaiFENesin 100 mg/5 ml Syrup UD PO PRN ×2 (04:16→09:05)
[2018-10-23] MEDS: Divalproex 500 mg DR Tab PO SCH (09:05)
[2018-10-23] MEDS: Divalproex 250 mg DR Tab PO SCH (21:11)
--- NOTE | 2018-10-23 22:52 | PCM.PYCHPN ---
Psychiatric Progress Note - Psychiatric Progress Note Patient seen today, length of contact: 18 min Patient Chief Complaint: "I feel a little better" Problems Identified/Issues Discussed: The patient was seen, chart reviewed, case discussed with treatment team. Stefan ibarra reports feeling better, he is less paranoid but remains guarded. He is also irritable but easy to redirect. The pt is compliant with medications and reports no side-effects. Symptoms are improving but needs more time to stabilize. Mood is still depressed, with a labile affect. Medication Change: No Medical Record Reviewed: Yes Mental Status Examination - Cognitive Function Orientation: Person, Place, Situation, Time Memory: Intact Attention: WNL Concentration: WNL Association: Loose Fund of Knowledge: Poor - Mood Mood: Anxious - Affect Affect: Broad - Speech Speech: Pressured - Formal Thought Process Formal Thought Process: Hallucinations, Delusions, Paranoia, Loosening of associations - Suicidal Ideation Suicidal Ideation: No - Homicidal Ideation Homicidal Ideation: No Goal/Treatment Plan - Goal/Treatment Plan Need for Continued Stay: Remain at risks for inpatient hospitalization Progress Toward Problem(s) and Goals/Treatment Plan: Continue medications Support and psychoeducation daily Attend groups and activities daily Individual therapy After care planning by KIKO and the team
[2018-10-24] MEDS: Divalproex 500 mg DR Tab PO SCH (09:11)
--- NOTE | 2018-10-24 10:02 | CARD ---
APPROVED REPORT Date of service: 10/17/2018 EKG Measurement Heart [id number] <Conclusion> Sinus tachycardia Otherwise normal ECG
[2018-10-24] MEDS: Divalproex 250 mg DR Tab PO SCH (21:31)
[2018-10-25] MEDS: Divalproex 500 mg DR Tab PO SCH (09:01)
--- NOTE | 2018-10-25 14:21 | PCM.BM ---
<Josi Vora - Last Filed: 10/25/18 14:20> Treatment Plan Problems - Problems identified on initial assessmt Medication nonadherence Date Initiated: 10/17/18 Time Initiated: 22:14 Assessment reference: NA Status: Active Ineffective coping Date Initiated: 10/17/18 Time Initiated: 22:14 Assessment reference: NA Status: Active Treatment assets and liabiliti Patient Assests: cooperative, motivated, self-reliant, ADL independent, negotiates basic needs Patient Liabilities: live alone (Homeless), financial problems (On disability), substance abuse (Cannabis), medical problems (Hypertension) - Milieu Protocol Maintain good personal hygiene: daily Encourage regular showers, daily Remind patient to perform daily oral care, every shift Assist patient to perform ADL's Conduct patient checks and document Observation sheet: Q15 minutes (For safety) Maintain personal safety: every shift Educate patient to report safety concerns to staff, every shift Monitor environment for contraband/sharps Medication safety: Monitor for expected outcome, potential side effects: every shift, Assess barriers to learning: every shift, Assess readiness for medication education: every shift Milieu Narrative: Schizoaffective disorder bipolar type -CBT -Psycho education -Supportive therapy and group therapy -Seroquel for insomnia -Haldol for psychosis -Depakote for mood -Klonopin for anxiety Family Contact Family involvement: Patient does not wish Family/SO involvement Family contact: Patient declines to allow family contact at present - Goals for Treatment Patient goals for treatment: "I want to retrun to the PACT Team." Discharge/Continuing Care - Education Needs Education Needs: Patient Medication, Patient Diagnosis/Disease Process, Patient Coping Skills, Patient Placement options, Patient Community resources - Discharge Discharge Criteria: Free of Suicidal thoughts, Free of agitation, Normal sleep pattern, Ability to care for self, Reduction of target symptoms Discharge to:: [facility]f - Treatment Team Participation Patient/Family/SO Statement: Schizoaffective disorder bipolar type -CBT -Psycho education -Supportive therapy and group therapy -Seroquel for insomnia -Haldol for psychosis -Depakote for mood -Klonopin for anxiety Discussed with Family/SO: No Was Patient/Family/SO present at Treatment Team Meeting: Yes Treatment Plan Review - Problem Medication nonadherence Time Initiated: 22:14 Ineffective coping Time Initiated: 22:14 - Discharge / Continuing Care Discharge to:: [facility]: Intensive Outpatient Health Needs: Follow up care/test, Medications/Rx, Alcohol/Drug treatment <Lizeth George - Last Filed: 10/25/18 14:25> Treatment Plan Review - Problem Medication nonadherence Date Initiated: 10/25/18 Time Initiated: 14:25 Progress toward outcomes: improved Ineffective coping Date Initiated: 10/25/18 Time Initiated: 14:25 Progress toward outcomes: improved
[2018-10-25] MEDS: Divalproex 250 mg DR Tab PO SCH (21:17)
[2018-10-26] MEDS: guaiFENesin 100 mg/5 ml Syrup UD PO PRN ×2 (00:31→07:37)
[2018-10-26 05:38] VITALS: RESP 18
[2018-10-26] MEDS: Divalproex 500 mg DR Tab PO SCH (10:13)
[2018-10-26] MEDS: Divalproex 250 mg DR Tab PO SCH (21:10)
--- NOTE | 2018-10-27 00:02 | PCM.PYCHPN ---
Psychiatric Progress Note - Psychiatric Progress Note Patient seen today, length of contact: 18 min Patient Chief Complaint: My anxiety is getting little better.' Problems Identified/Issues Discussed: Patient seen and evaluated, chart reviewed and discussed with the nurse. Today patient appeared somewhat more organized and less internally preoccupied than before. He reports some improvement in the voices and paranoia. He remained irritable and agitated. He is taking medication and denies any side effects. Symptoms are improving but needs more time for stabilization. Supportive therapy and psychoeducation were given. Medication Change: No Medical Record Reviewed: Yes Mental Status Examination - Cognitive Function Orientation: Person, Place, Situation, Time Memory: Intact Attention: WNL Concentration: WNL Association: Loose Fund of Knowledge: Poor - Mood Mood: Anxious - Affect Affect: Broad - Speech Speech: Pressured - Formal Thought Process Formal Thought Process: Hallucinations, Delusions, Paranoia, Loosening of associations - Suicidal Ideation Suicidal Ideation: No - Homicidal Ideation Homicidal Ideation: No Goal/Treatment Plan - Goal/Treatment Plan Need for Continued Stay: Remain at risks for inpatient hospitalization Progress Toward Problem(s) and Goals/Treatment Plan: Schizoaffective disorder bipolar type -CBT -Psycho education -Supportive therapy and group therapy -Seroquel for insomnia -Haldol for psychosis -Depakote for mood -Klonopin for anxiety
[2018-10-27 06:48] VITALS: TEMP 98.5
[2018-10-27] MEDS: Divalproex 500 mg DR Tab PO SCH (09:11)
[2018-10-27] MEDS: guaiFENesin 100 mg/5 ml Syrup UD PO PRN (15:46)
[2018-10-27] MEDS: Divalproex 250 mg DR Tab PO SCH (21:32)
--- NOTE | 2018-10-28 09:46 | PCM.PYCHPN ---
Psychiatric Progress Note - Psychiatric Progress Note Patient seen today, length of contact: 18 min Patient Chief Complaint: I am feeling little better.' Problems Identified/Issues Discussed: Patient seen and evaluated, chart reviewed and discussed with the nurse. He reports some improvement in the voices and paranoia. Today patient appeared somewhat more organized and less internally preoccupied than before. He reports some improvement in the irritability and agitation. He is taking medication and denies any side effects. Symptoms are improving but needs more time for stabilization. Supportive therapy and psychoeducation were given. Medication Change: No Medical Record Reviewed: Yes Mental Status Examination - Cognitive Function Orientation: Person, Place, Situation, Time Memory: Intact Attention: WNL Concentration: WNL Association: Loose Fund of Knowledge: Poor - Mood Mood: Anxious - Affect Affect: Broad - Speech Speech: Pressured - Formal Thought Process Formal Thought Process: Hallucinations, Delusions, Paranoia, Loosening of associations - Suicidal Ideation Suicidal Ideation: No - Homicidal Ideation Homicidal Ideation: No Goal/Treatment Plan - Goal/Treatment Plan Need for Continued Stay: Remain at risks for inpatient hospitalization Progress Toward Problem(s) and Goals/Treatment Plan: Schizoaffective disorder bipolar type -CBT -Psycho education -Supportive therapy and group therapy -Seroquel for insomnia -Haldol for psychosis -Depakote for mood -Klonopin for anxiety
[2018-10-28] MEDS: Divalproex 500 mg DR Tab PO SCH (10:27)
[2018-10-28] MEDS: guaiFENesin 100 mg/5 ml Syrup UD PO PRN (16:35)
[2018-10-28] MEDS: Divalproex 250 mg DR Tab PO SCH (21:25)
[2018-10-29] MEDS: guaiFENesin 100 mg/5 ml Syrup UD PO PRN (03:16)
[2018-10-29] MEDS: Divalproex 500 mg DR Tab PO SCH (09:23)
[2018-10-29] MEDS: Divalproex 250 mg DR Tab PO SCH (22:16)
--- NOTE | 2018-10-29 23:53 | PCM.PYCHPN ---
Psychiatric Progress Note - Psychiatric Progress Note Patient seen today, length of contact: 18 min Patient Chief Complaint: I am feeling little better.' Problems Identified/Issues Discussed: Patient seen and evaluated, chart reviewed and discussed with the nurse. As per staff, patient is still talking to himself. However he is less irritable and less agitated than before. He appeared somewhat more organized and less internally preoccupied than before. He reports improvement in the voices and paranoia. He is taking medication and denies any side effects. Symptoms are improving but needs more time for stabilization. Supportive therapy and psychoeducation were given. Medication Change: No Medical Record Reviewed: Yes Mental Status Examination - Cognitive Function Orientation: Person, Place, Situation, Time Memory: Intact Attention: WNL Concentration: WNL Association: Loose Fund of Knowledge: Poor - Mood Mood: Anxious - Affect Affect: Broad - Speech Speech: Pressured - Formal Thought Process Formal Thought Process: Hallucinations, Delusions, Paranoia, Loosening of associations - Suicidal Ideation Suicidal Ideation: No - Homicidal Ideation Homicidal Ideation: No Goal/Treatment Plan - Goal/Treatment Plan Need for Continued Stay: Remain at risks for inpatient hospitalization Progress Toward Problem(s) and Goals/Treatment Plan: Schizoaffective disorder bipolar type -CBT -Psycho education -Supportive therapy and group therapy -Seroquel for insomnia -Haldol for psychosis -Depakote for mood -Klonopin for anxiety -Neurontin for augmentation
[2018-10-30] MEDS: Divalproex 500 mg DR Tab PO SCH (09:53)
[2018-10-30] MEDS: Divalproex 250 mg DR Tab PO SCH (21:45)
[2018-10-31] MEDS: guaiFENesin 100 mg/5 ml Syrup UD PO PRN (06:05)
[2018-10-31] MEDS: Divalproex 500 mg DR Tab PO SCH (09:30)
[2018-10-31] MEDS: Divalproex 250 mg DR Tab PO SCH (21:50)
[2018-11-01 06:23] VITALS: BP 137/96; PULSE 95
[2018-11-01] MEDS: Divalproex 500 mg DR Tab PO SCH (09:11)
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
== END 2018-11-01 12:48 | disposition home or self-care (01) | DRG 750 ==
LOC: C.ER 14:16 → C.9E 19:15 → C.5E 19:39
PROVIDERS: ADMIT Psychiatry & Neurology Psychiatry; ATTEND Psychiatry & Neurology Psychiatry
PROC: GZ3ZZZZ Medication Management (ICD-10-PCS; principal; 2018-10-17)
PROC: GZHZZZZ Group Psychotherapy (ICD-10-PCS; 2018-10-17)
PROC: GZ56ZZZ Individual Psychotherapy, Supportive (ICD-10-PCS; 2018-10-17)
DX: F25.0 Schizoaffective disorder, bipolar type (principal); I10 Essential (primary) hypertension; F41.9 Anxiety disorder, unspecified; G47.00 Insomnia, unspecified; E78.00 Pure hypercholesterolemia, unspecified; Z59.0 Homelessness

== ENCOUNTER 2018-11-13 15:14 | Inpatient (IN) | payer MEDICAID ==
[2018-11-13 15:15] VITALS: BMI 29.1
--- NOTE | 2018-11-13 16:21 | C.PDOC ---
History Of Present Illness 38 y/o male, with extensive history of mental problems, comes in to ED stating that he feels paranoid and anxious. Patient was recently admitted and was prescribed medications but he reports that he was unable to get them. Patient is not taking any medications currently. He denies SI/HI. Time Seen by Provider: 11/13/18 15:50 Chief Complaint (Nursing): Psychiatric Evaluation History Per: Patient History/Exam Limitations: no limitations Onset/Duration Of Symptoms: Days Current Symptoms Are (Timing): Still Present Past Medical History Reviewed: Historical Data, Nursing Documentation, Vital Signs Vital Signs: Last Vital Signs Temp 98.9 F 11/13/18 15:28 Pulse 120 H 11/13/18 15:28 Resp 18 11/13/18 15:28 BP 129/85 11/13/18 15:28 Pulse Ox 98 11/13/18 15:28 - Medical History PMH: Anxiety, Bipolar Disorder, Depression, HTN, Hypercholesterolemia, Schizophrenia Denies: Diabetes, Hepatitis, HIV, Chronic Kidney Disease, Seizures, Sexually Transmitted Disease - [facility] Procedures GROUP PSYCHOTHERAPY (10/17/18) INDIVIDUAL PSYCHOTHERAPY, COGNITIVE-BEHAVIORAL (07/29/17) INDIVIDUAL PSYCHOTHERAPY, SUPPORTIVE (10/17/18) MEDICATION MANAGEMENT (10/17/18) Family History: States: No Known Family Hx - Social History Hx Tobacco Use: No Hx Alcohol Use: Yes Hx Substance Use: Yes - Immunization History Hx Tetanus Toxoid Vaccination: No Hx Influenza Vaccination: No Hx Pneumococcal Vaccination: No Review Of Systems Except As Marked, All Systems Reviewed And Found Negative. Constitutional: Negative for: Fever, Chills Cardiovascular: Negative for: Chest Pain Respiratory: Negative for: Shortness of Breath Gastrointestinal: Negative for: Nausea, Vomiting, Diarrhea Neurological: Negative for: Headache, Dizziness Psych: Positive for: Anxiety, Other (Paranoia). Negative for: Suicidal ideation (or homicidal ideation) Physical Exam - Physical Exam Appears: Non-toxic, No Acute Distress, Other (Anxious) Skin: Warm, Dry Head: Atraumatic, Normacephalic Eye(s): bilateral: Normal Inspection Oral Mucosa: Moist Neck: Supple Cardiovascular: Rhythm Regular, No Murmur Respiratory: Normal Breath Sounds, No Rales, No Rhonchi, No Wheezing Gastrointestinal/Abdominal: Soft, No Tenderness Extremity: Bilateral: Atraumatic, Normal ROM Neurological/Psych: Oriented x3, Normal Speech, Normal Cognition ED Course And Treatment - Laboratory Results Result Diagrams: 11/13/18 16:30 11/13/18 16:30 O2 Sat by Pulse Oximetry: 98 (RA) Pulse Ox Interpretation: Normal Medical Decision Making Medical Decision Making: Plan: --Labs --UA Patient is medically cleared for psych admission. Patient accepted for admission by Dr. Lay. Disposition Discussed With .: Gen Lay Doctor Will See Patient In The: Hospital - Disposition Disposition: HOSPITALIZED Disposition Time: 17:55 Condition: STABLE - POA Present On Arrival: None - Clinical Impression Clinical Impression: Schizophrenia - Scribe Statement The provider has reviewed the documentation as recorded by the David Shafer Provider Attestation: All medical record entries made by the David were at my direction and personally dictated by me. I have reviewed the chart and agree that the record accurately reflects my personal performance of the history, physical exam, medical decision making, and the department course for this patient. I have also personally directed, reviewed, and agree with the discharge instructions and disposition.
[2018-11-13 16:40] LABS: BASO # 0.1 K/uL (0.0-0.2); BASO % 0.7 % (0.0-2.0); EOS # 0.1 K/uL (0.0-0.7); EOS % 0.8 % (0.0-4.0); HEMOGLOBIN 14.1 g/dL (12.0-18.0); LYMPH # 2.9 K/uL (1.0-4.3); LYMPH % 31.4 % (20.0-40.0); MEAN CELL VOLUME 76.8 fL (80.0-94.0); MEAN CORPUSCULAR HGB CONC 33.8 g/dL (33.0-37.0); MEAN PLATELET VOLUME 8.3 fL (7.2-11.7); MONO # 0.9 K/uL (0.0-0.8); MONO % 9.7 % (0.0-10.0); NEUT # 5.3 K/uL (1.8-7.0); NEUT % 57.4 % (50.0-75.0); NRBC % 0.2 % (0.0-2.0); RBC 5.44 Mil/uL (4.40-5.90); RED CELL DISTRIBUTION WIDTH 16.8 % (11.5-14.5); WHITE BLOOD COUNT 9.2 K/uL (4.8-10.8)
[2018-11-13 16:44] LABS: URINE BILIRUBIN NEGATIVE (NEGATIVE); URINE BLOOD NEGATIVE (NEGATIVE); URINE CLARITY Hazy (Clear); URINE COLOR Amber (YELLOW); URINE GLUCOSE (UA) NORMAL (Normal); URINE LEUKOCYTE ESTERASE NEG Leu/uL (Negative); URINE PROTEIN 2+ mg/dL (NEGATIVE)
[2018-11-13 16:56] LABS: ALB/GLOB RATIO 1.4 (1.0-2.1); ALBUMIN 4.8 g/dL (3.5-5.0); ALT/SGPT 37 U/L (21-72); AST/SGOT 40 U/L (17-59); BARBITURATES, UR NEGATIVE (NEGATIVE); BENZODIAZEPINES, UR NEGATIVE (NEGATIVE); BLOOD UREA NITROGEN 13 mg/dL (9-20); CALCIUM 9.9 mg/dl (8.6-10.4); GFR NON-AFRICAN AMERICAN > 60; OPIATES, UR NEGATIVE (NEGATIVE); PHENCYCLIDINE, UR NEGATIVE (NEGATIVE)
--- NOTE | 2018-11-13 18:13 | PCM.BM ---
<Lizeth George - Last Filed: 11/13/18 18:10> Treatment Plan Problems - Problems identified on initial assessmt Ineffective Family Coping Date Initiated: 11/13/18 Time Initiated: 18:12 Assessment reference: NA Status: Active Medication Nonadherence Date Initiated: 11/13/18 Time Initiated: 18:12 Assessment reference: NA Status: Active Self Care Deficit Date Initiated: 11/13/18 Time Initiated: 18:12 Assessment reference: NA Status: Active Treatment assets and liabiliti Patient Assests: cooperative, motivated, self-reliant, ADL independent, negoti ates basic needs, cognitively intact Patient Liabilities: live alone, financial problems, substance abuse (THC) - Milieu Protocol Maintain good personal hygiene: daily Encourage regular showers, daily Remind patient to perform daily oral care, daily Assist patient to perform ADL's (Self) Conduct patient checks and document Observation sheet: Q15 minutes (safety) Maintain personal safety: every shift Educate patient to report safety concerns to staff, every shift Monitor environment for contraband/sharps Medication safety: Monitor for expected outcome, potential side effects: every shift, Assess barriers to learning: every shift, Assess readiness for medication education: every shift <Gen Lay M - Last Filed: 11/16/18 20:54> - Diagnosis (1) Schizoaffective disorder, depressive type Status: Acute Interventions: 11/16/18 20:54 * Assess/adjust medications daily and /or as needed * See patient on an individual basis 7x/week to assess level of manic behaviors and stability * Discuss risks, benefits, side effects and alternatives of medications (2) Cannabis use disorder, severe, dependence Status: Acute Interventions: 11/16/18 20:55 * Assess 7x/week regarding severity of withdrawal * Educate regarding risks, benefits, side effects and alternatives of medications * Use Motivational Interviewing for abstinence * Use CBT for relapse prevention * Medication management for withdrawal symptoms * Encourage medication assisted treatment <Josi Vora - Last Filed: 11/18/18 08:39> Family Contact Family involvement: Patient does not wish Family/SO involvement Family contact: Patient declines to allow family contact at present - Goals for Treatment Patient goals for treatment: "I want to go to an outpatient program." Discharge/Continuing Care - Education Needs Education Needs: Patient Medication, Patient Diagnosis/Disease Process, Patient Coping Skills, Patient Placement options, Patient Community resources - Discharge Discharge Criteria: Free of Suicidal thoughts, Normal sleep pattern, Ability to care for self, No longer exhibiting s/s of withdrawal, Reduction of target symptoms Discharge to:: Custodial - Treatment Team Participation Discussed with Family/SO: No Was Patient/Family/SO present at Treatment Team Meeting: Yes
[2018-11-13] MEDS: Divalproex 500 mg DR Tab PO SCH ×2 (19:53→21:20)
[2018-11-14] MEDS: Divalproex 500 mg DR Tab PO SCH ×3 (09:28→21:02)
--- NOTE | 2018-11-14 12:22 | PCM.PSYCH ---
Initial Psychiatric Evaluation - Initial Psychiatric Evaluation Type of Admission: Voluntary Legal Status: Capacity Chief Complaint (in patient's own words): I slept after 2 weeks. History of Present Illness and Precipitating Events: This is a 38 year old male with history of schizoaffective disorder, noncompliant with treatment for last 2 weeks, is homeless and unemployed on disability. Patient was admitted for disorganized behavior, racing thoughts and paranoia. Patient was a poor historian. Most of the history was obtained from the previous record as patient's speech was very disorganized. Patient has a history of multiple inpatient psychiatric hospitalizations. He states over 20 times in his past. Patient was discharged from [facility] about 2 weeks ago. After discharge patient stopped taking his medication. Patient was disorganized and internally preoccupied throughout the interview. Patients speech was tangential. Patient appeared disheveled and unkempt and he appeared paranoid, delusional and bizarre. However he denies suicidal or homicidal ideations, auditory or visual hallucinations, or paranoia. Urine drug screen was also positive for cannabis. Current Medications: Active Medications Generic Name Dose Route Start Last Admin Trade Name Freq PRN Reason Stop Dose Admin Benztropine Mesylate 1 mg 11/13/18 19:45 11/14/18 09:28 Cogentin PO 1 mg BID GEOVANNI Administration Divalproex Sodium 500 mg 11/13/18 19:45 11/14/18 09:28 Depuri Mahmood PO 500 mg BID GEOVANNI Administration Divalproex Sodium 500 mg 11/13/18 22:00 11/13/18 21:20 Depakodiana Mahmood PO 500 mg HS GEOVANNI Administration Gabapentin 600 mg 11/13/18 19:45 11/14/18 09:28 Neurontin PO 600 mg BID GEOVANNI Administration Haloperidol 10 mg 11/13/18 19:45 11/14/18 09:28 Haldol PO 10 mg BID GEOVANNI Administration Hydroxyzine HCl 25 mg 11/13/18 19:40 Atarax PO Q6 PRN Anxiety Lisinopril 10 mg 11/14/18 10:00 11/14/18 09:30 Zestril PO Not Given DAILY GEOVANNI Pneumococcal Polyvalent Vaccine 0.5 ml 11/16/18 10:00 Pneumovax 23 Vaccine IM 11/16/18 10:01 .ONCE ONE Quetiapine Fumarate 200 mg 11/13/18 22:00 11/13/18 21:20 Seroquel PO 200 mg HS GEOVANNI Administration Past Psychiatric History - Past Psychiatric History Previous Treatment History: Inpatient At [facility] hospital: [facility] History of Abuse: None reported History of ETOH/Drug Use: See HPI History of Family Illness: Unavailable Pertinent Medical Hx (Current Medical&Sleep Prob, Allergies): Allergies Allergy/AdvReac Type Severity Reaction Status Date / Time No Known Allergies Allergy Verified 11/13/18 15:34 Benztropine [Cogentin] 1 mg PO Q12 #60 tab 11/01/18 Divalproex [Depakote DR] 500 mg PO BID #60 tcp 11/01/18 Haloperidol [Haldol] 10 mg PO BID #60 tab 11/01/18 Lisinopril [Zestril] 10 mg PO DAILY #30 tab 11/01/18 QUEtiapine [SEROquel] 200 mg PO HS #60 tab 11/01/18 Gabapentin [Neurontin] 300 mg PO BID 11/13/18 Hypertension Review of Systems - Psychiatric Psychiatric: As Per HPI, Depression, Irritability, Mood Swings, Paranoia Mental Status Examination - Personal Presentation Personal Presentation: Looks stated age - Affect Affect: Constricted - Motor Activity Motor Activity: Psychomotor Agitation - Reliability in Providing Information Reliability in Providing Information: Poor, due to alteration in thoughts - Speech Speech: Relevant - Mood Mood: Depressed - Formal Thought Process Formal Thought Process: Paranoia, Loosening of associations, Flight of ideas - Hallucinations/Delusions Hallucinations: Other (None reported at the time of evaluation) Delusions: Other - Obsessions/Compulsions Obsessions: None Compulsions: None - Cognitive Functions Orientation: Person, Place, Time Sensorium: Alert Attention/Concentration: Attentive Estimate of Intelligence: Below average Judgement: Intact, as evidence by: Insight regarding need for hospitalization Memory: Recent intact, as evidence by: Other, Remote impaired as evidenced by: Inability to recall historical events - Risk Risk: Diminished functioning - Strength & Assets Inventory Strength & Assets Inventory: Other - Limitations Limitations: Other (Homeless) DSM 5 DX - DSM 5 DSM 5 Diagnosis: Schizoaffective disorder depressive type. Cannabis withdrawal. Cannabis use disorder severe - Recommended/Plan of Treatment Treatment Recommendations and Plan of Treatment: Patient education. Supportive therapy. CBT for relapse prevention. [place] for abstinence. We will start his discharge medications. Projected ELOS: 8-10 days - Smoking Cessation Smoking Cessation Initiated: No
[2018-11-15] MEDS: Divalproex 500 mg DR Tab PO SCH ×3 (09:07→21:01)
--- NOTE | 2018-11-15 21:04 | PCM.PYCHPN ---
Psychiatric Progress Note - Psychiatric Progress Note Problems Identified/Issues Discussed: Patient seen, chart reviewed, case discussed with the staff. Issues related to illness and treatment were discussed with the patient and staff. Reported compliant with treatment with no adverse effects. Tolerating treatment very well. Patient reported feeling little better, still has withdrawal symptoms including shaking, sweating, sleeping disturbance, headache. Patient is still paranoid, disorganized, unkempt and internally preoccupied. Staff reported that patient is isolative in his room, not attending groups and also not taking shower. Encouraged patient to take shower, and also attending groups. Mood reported as okay. Affect inappropriate, appeared constricted. Aftercare discussed with the patient. Denied any delusions, auditory or visual hallucinations, suicidal ideations or homicidal ideations at the time of evaluation. Medical Problems: Hypertension Diagnostic Results: Reviewed Medication Change: No Medical Record Reviewed: Yes Mental Status Examination - Cognitive Function Orientation: Person, Place, Time Memory: Intact Attention: WNL Concentration: WNL Association: Loose Fund of Knowledge: Poor Decription of patient's judgement and insights: Poor - Mood Mood: Depressed - Affect Affect: Constricted - Speech Speech: Appropriate - Formal Thought Process Formal Thought Process: Paranoia, Loosening of associations, Flight of ideas - Suicidal Ideation Suicidal Ideation: No - Homicidal Ideation Homicidal Ideation: No Goal/Treatment Plan - Goal/Treatment Plan Need for Continued Stay: Remain at risks for inpatient hospitalization, Discharge may exacerbated symptoms, Severe functional impairment Progress Toward Problem(s) and Goals/Treatment Plan: Patient education. Supportive therapy. CBT for relapse prevention. [place] for abstinence. Continue treatment as before. Estimated Date of D/C: 11/22/18 - Smoking Cessation Smoking Cessation Initiated: No
[2018-11-16] MEDS: Divalproex 500 mg DR Tab PO SCH ×3 (09:04→21:17)
[2018-11-16] MEDS ORDERED: Pneumococcal 23-Valent Vaccine IM ONE (10:00)
--- NOTE | 2018-11-16 20:43 | PCM.PYCHPN ---
Psychiatric Progress Note - Psychiatric Progress Note Patient seen today, length of contact: 15-minute Patient Chief Complaint: I am feeling little better. Problems Identified/Issues Discussed: Patient seen, chart reviewed, case discussed with the staff. Issues related to illness and treatment were discussed with the patient and staff. Reported compliant with treatment with no adverse effects. Tolerating treatment very well. Patient reported feeling little better, still has withdrawal symptoms including shaking, sweating, sleeping disturbance, headache. Patient is still paranoid, disorganized, unkempt and internally preoccupied. Staff reported that patient is still isolative in his room, not attending groups and also not taking shower. Encouraged patient to take shower, and also attending groups. Mood reported as okay. Affect inappropriate, appeared constricted. Patient needs more time for stabilization. Aftercare discussed with the patient. Denied any delusions, auditory or visual hallucinations, suicidal ideations or homicidal ideations at the time of evaluation. Medical Problems: Hypertension Diagnostic Results: Reviewed Medication Change: No Medical Record Reviewed: Yes Mental Status Examination - Cognitive Function Orientation: Person, Place, Time Memory: Intact Attention: WNL Concentration: WNL Association: Loose Fund of Knowledge: Poor Decription of patient's judgement and insights: Poor - Mood Mood: Depressed - Affect Affect: Constricted - Speech Speech: Appropriate - Formal Thought Process Formal Thought Process: Paranoia, Loosening of associations, Flight of ideas - Suicidal Ideation Suicidal Ideation: No - Homicidal Ideation Homicidal Ideation: No Goal/Treatment Plan - Goal/Treatment Plan Need for Continued Stay: Remain at risks for inpatient hospitalization, Discharge may exacerbated symptoms, Severe functional impairment Progress Toward Problem(s) and Goals/Treatment Plan: Patient education. Supportive therapy. CBT for relapse prevention. [place] for abstinence. Continue treatment as before. Estimated Date of D/C: 11/22/18 - Smoking Cessation Smoking Cessation Initiated: No
[2018-11-17] MEDS: Divalproex 500 mg DR Tab PO SCH ×3 (09:59→21:34)
[2018-11-17] MEDS ORDERED: Haloperidol Decanoate 100 mg/ml Inj IM ONE (12:00)
[2018-11-17] MEDS: guaiFENesin 100 mg/5 ml Syrup UD PO PRN ×2 (18:10→22:15)
--- NOTE | 2018-11-17 23:29 | PCM.PYCHPN ---
Psychiatric Progress Note - Psychiatric Progress Note Patient seen today, length of contact: 15-minute Patient Chief Complaint: I am feeling little better. I want my injection. Problems Identified/Issues Discussed: Patient seen, chart reviewed, case discussed with the staff. Issues related to illness and treatment were discussed with the patient and staff. Reported compliant with treatment with no adverse effects. Tolerating treatment very well. Patient reported feeling little better, still has withdrawal symptoms including shaking, sweating, sleeping disturbance, headache. Patient is still paranoid, disorganized, unkempt and internally preoccupied. Staff reported that patient is less isolative and is attending attending groups. Patient reported he last had injection Haldol decanoate about 2 months ago. Will give injection Haldol 100 mg today. Mood reported as okay. Affect inappropriate, appeared constricted. Patient needs more time for stabilization. Aftercare discussed with the patient. Denied any delusions, auditory or visual hallucinations, suicidal ideations or homicidal ideations at the time of evaluation. Medical Problems: Hypertension Diagnostic Results: Reviewed DSM 5 Symptoms Update: Some improvement with treatment Medication Change: Yes (Gavino injection of Haldol Decanoate 200 mg every 4 weeks.) Medical Record Reviewed: Yes Mental Status Examination - Cognitive Function Orientation: Person, Place, Time Memory: Intact Attention: WNL Concentration: WNL Association: Loose Fund of Knowledge: Poor Decription of patient's judgement and insights: Poor - Mood Mood: Depressed - Affect Affect: Constricted - Speech Speech: Appropriate - Formal Thought Process Formal Thought Process: Loosening of associations, Flight of ideas - Suicidal Ideation Suicidal Ideation: No - Homicidal Ideation Homicidal Ideation: No Goal/Treatment Plan - Goal/Treatment Plan Need for Continued Stay: Remain at risks for inpatient hospitalization, Discharge may exacerbated symptoms, Severe functional impairment Progress Toward Problem(s) and Goals/Treatment Plan: Patient education. Supportive therapy. CBT for relapse prevention. [place] for abstinence. Will give him injection Haldol Decanoate 100 mg today. Continue rest of the treatment as before. Estimated Date of D/C: 11/22/18 - Smoking Cessation Smoking Cessation Initiated: No
[2018-11-18] MEDS: guaiFENesin 100 mg/5 ml Syrup UD PO PRN (07:36)
[2018-11-18] MEDS: Divalproex 500 mg DR Tab PO SCH ×3 (09:12→21:17)
--- NOTE | 2018-11-18 17:03 | PCM.PYCHPN ---
Psychiatric Progress Note - Psychiatric Progress Note Patient seen today, length of contact: 15-minute Patient Chief Complaint: I am feeling little better. Problems Identified/Issues Discussed: Patient seen, chart reviewed, case discussed with the staff. Issues related to illness and treatment were discussed with the patient and staff. Reported compliant with treatment with no adverse effects. Tolerating treatment very well. Patient reported feeling little better, still has withdrawal symptoms including shaking, sweating, sleeping disturbance, headache. Patient is still paranoid, disorganized, unkempt and internally preoccupied. Today patient was observed arguing with staff on food issues. Staff reported that patient is less isolative and is attending groups, but has behavioral disturbances at times. Mood reported as okay. Affect inappropriate, appeared constricted. Patient needs more time for stabilization. Aftercare discussed with the patient. Denied any delusions, auditory or visual hallucinations, suicidal ideations or homicidal ideations at the time of evaluation. Medical Problems: Hypertension Diagnostic Results: Reviewed DSM 5 Symptoms Update: Some improvement with treatment. Medication Change: Yes Medical Record Reviewed: Yes Mental Status Examination - Cognitive Function Orientation: Person, Place, Time Memory: Intact Attention: WNL Concentration: WNL Association: Loose Fund of Knowledge: Poor Decription of patient's judgement and insights: Fair - Mood Mood: Depressed - Affect Affect: Constricted - Speech Speech: Appropriate - Formal Thought Process Formal Thought Process: Paranoia, Loosening of associations, Flight of ideas - Suicidal Ideation Suicidal Ideation: No - Homicidal Ideation Homicidal Ideation: No Goal/Treatment Plan - Goal/Treatment Plan Need for Continued Stay: Remain at risks for inpatient hospitalization, Discharge may exacerbated symptoms, Severe functional impairment Progress Toward Problem(s) and Goals/Treatment Plan: Patient education. Supportive therapy. CBT for relapse prevention. [place] for abstinence. Continue treatment as before. Estimated Date of D/C: 11/22/18 - Smoking Cessation Smoking Cessation Initiated: No
[2018-11-19] MEDS: guaiFENesin 100 mg/5 ml Syrup UD PO PRN ×4 (06:43→22:27)
[2018-11-19] MEDS: Divalproex 500 mg DR Tab PO SCH ×3 (09:17→22:00)
[2018-11-20] MEDS: guaiFENesin 100 mg/5 ml Syrup UD PO PRN ×2 (09:36→19:32)
[2018-11-20] MEDS: Divalproex 500 mg DR Tab PO SCH ×3 (09:37→21:30)
--- NOTE | 2018-11-20 23:21 | PCM.PYCHPN ---
Psychiatric Progress Note - Psychiatric Progress Note Patient seen today, length of contact: 15-minute Patient Chief Complaint: "OK" Problems Identified/Issues Discussed: The pt is seen, chart reviewed, case discussed with staff. Support and psychoeducation given Pt is improving slowly and needs more time, still has ongoing symptoms. Still regressed, odd, concrete, paranoid No SEs from medications, risks discussed. Medication Change: Yes (meds adjusted) Medical Record Reviewed: Yes Mental Status Examination - Cognitive Function Orientation: Person, Place, Time Memory: Intact Attention: Poor Concentration: Poor Association: Loose Fund of Knowledge: Poor - Mood Mood: Depressed - Affect Affect: Constricted - Speech Speech: Appropriate - Formal Thought Process Formal Thought Process: Paranoia, Loosening of associations, Flight of ideas - Suicidal Ideation Suicidal Ideation: No - Homicidal Ideation Homicidal Ideation: No Goal/Treatment Plan - Goal/Treatment Plan Need for Continued Stay: Remain at risks for inpatient hospitalization, Discharge may exacerbated symptoms, Severe functional impairment Progress Toward Problem(s) and Goals/Treatment Plan: Continue medications Support and psychoeducation daily Attend groups and activities daily After care planning by KIKO
[2018-11-21] MEDS: Divalproex 500 mg DR Tab PO SCH ×3 (09:29→21:38)
[2018-11-21] MEDS: guaiFENesin 100 mg/5 ml Syrup UD PO PRN (16:24)
[2018-11-22] MEDS: guaiFENesin 100 mg/5 ml Syrup UD PO PRN ×3 (00:21→22:39)
[2018-11-22] MEDS: Divalproex 500 mg DR Tab PO SCH ×3 (09:08→21:14)
--- NOTE | 2018-11-22 09:31 | PCM.BM ---
Treatment Plan Problems - Problems identified on initial assessmt Ineffective Family Coping Date Initiated: 11/13/18 Time Initiated: 18:12 Assessment reference: NA Status: Active Medication Nonadherence Date Initiated: 11/13/18 Time Initiated: 18:12 Assessment reference: NA Status: Active Self Care Deficit Date Initiated: 11/13/18 Time Initiated: 18:12 Assessment reference: NA Status: Active Treatment assets and liabiliti Patient Assests: cooperative, motivated, self-reliant, ADL independent, negotiates basic needs, cognitively intact Patient Liabilities: live alone, financial problems, substance abuse (THC) - Milieu Protocol Maintain good personal hygiene: daily Encourage regular showers, daily Remind p atient to perform daily oral care, daily Assist patient to perform ADL's (Self) Conduct patient checks and document Observation sheet: Q15 minutes (safety) Maintain personal safety: every shift Educate patient to report safety concerns to staff, every shift Monitor environment for contraband/sharps Medication safety: Monitor for expected outcome, potential side effects: every shift, Assess barriers to learning: every shift, Assess readiness for medication education: every shift Milieu Narrative: Patient education. Supportive therapy. CBT for relapse prevention. [place] for abstinence. Continue treatment as before. Family Contact Family involvement: Patient does not wish Family/SO involvement Family contact: Patient declines to allow family contact at present - Goals for Treatment Patient goals for treatment: "I want to go to an outpatient program." Discharge/Continuing Care - Education Needs Education Needs: Patient Medication, Patient Diagnosis/Disease Process, Patient Coping Skills, Patient Placement options, Patient Community resources - Discharge Discharge Criteria: Free of Suicidal thoughts, Normal sleep pattern, Ability to care for self, No longer exhibiting s/s of withdrawal, Reduction of target symptoms Discharge to:: [facility] - Treatment Team Participation Patient/Family/SO Statement: Patient education. Supportive therapy. CBT for relapse prevention. [place] for abstinence. Continue treatment as before. Discussed with Family/SO: No Was Patient/Family/SO present at Treatment Team Meeting: Yes Treatment Plan Review - Problem Ineffective Family Coping Time Initiated: 18:12 Medication Nonadherence Time Initiated: 18:12 Self Care Deficit Time Initiated: 18:12 - Discharge / Continuing Care Discharge to:: [facility] Partial hospital Health Needs: Medications/Rx
--- NOTE | 2018-11-22 12:33 | PCM.PYCHPN ---
Psychiatric Progress Note - Psychiatric Progress Note Patient seen today, length of contact: 15-minute Patient Chief Complaint: I am feeling little better. I was made due to my follow-up care. Problems Identified/Issues Discussed: Patient seen, chart reviewed, case discussed with the staff. Issues related to illness and treatment were discussed with the patient and staff. Reported compliant with treatment with no adverse effects. Tolerating treatment very well. Patient reported feeling little better. Staff reported that patient was made earlier this morning after waking up. Issues discussed with the patient. Patient reported that he was upset with his follow-up care. Patient reported he want to go to a certain place but was facing some problems. Will discuss again with the social services manager. Staff reported that patient is less isolative and is attending groups, but still has behavioral disturbances at times. Mood reported as okay. Affect inappropriate, appeared constricted. Patient needs more time for stabilization. Aftercare discussed with the patient. Denied any delusions, auditory or visual hallucinations, suicidal ideations or homicidal ideations at the time of evaluation. Medical Problems: Hypertension Diagnostic Results: Reviewed DSM 5 Symptoms Update: Some improvement with treatment. Medication Change: No Medical Record Reviewed: Yes Mental Status Examination - Cognitive Function Orientation: Person, Place, Time Memory: Intact Attention: WNL Concentration: WNL Association: WNL Fund of Knowledge: Poor Decription of patient's judgement and insights: Fair - Mood Mood: Depressed - Affect Affect: Constricted - Speech Speech: Appropriate - Formal Thought Process Formal Thought Process: Paranoia, Loosening of associations, Flight of ideas - Suicidal Ideation Suicidal Ideation: No - Homicidal Ideation Homicidal Ideation: No Goal/Treatment Plan - Goal/Treatment Plan Need for Continued Stay: Remain at risks for inpatient hospitalization, Discharge may exacerbated symptoms, Severe functional impairment Progress Toward Problem(s) and Goals/Treatment Plan: Patient education. Supportive therapy. CBT for relapse prevention. [place] for abstinence. Continue treatment as before. Estimated Date of D/C: 11/25/18 - Smoking Cessation Smoking Cessation Initiated: No
[2018-11-23] MEDS: Divalproex 500 mg DR Tab PO SCH ×3 (09:04→21:05)
--- NOTE | 2018-11-23 18:14 | PCM.PYCHPN ---
Psychiatric Progress Note - Psychiatric Progress Note Patient seen today, length of contact: 15-minute Patient Chief Complaint: I am not feeling better. Problems Identified/Issues Discussed: Patient seen, chart reviewed, case discussed with the staff. Issues related to illness and treatment were discussed with the patient and staff. Reported compliant with treatment with no adverse effects. Tolerating treatment very well. Patient reported not feeling better. Staff also reported some behavioral disturbance at times. Issues discussed with the patient. Patient was labile. Will increase the dose of Seroquel to 300 mg at bedtime. Mood reported as angry. Affect inappropriate, appeared constricted. Patient needs more time for stabilization. Aftercare discussed with the patient. Denied any delusions, auditory or visual hallucinations, suicidal ideations or homicidal ideations at the time of evaluation. Medical Problems: Hypertension Diagnostic Results: Reviewed Medication Change: No Medical Record Reviewed: Yes Mental Status Examination - Cognitive Function Orientation: Person, Place, Time Memory: Intact Attention: WNL Concentration: WNL Association: WNL Fund of Knowledge: Poor Decription of patient's judgement and insights: Fair - Mood Mood: Other (Angry) - Affect Affect: Constricted - Speech Speech: Appropriate - Formal Thought Process Formal Thought Process: Paranoia, Loosening of associations, Flight of ideas - Suicidal Ideation Suicidal Ideation: No - Homicidal Ideation Homicidal Ideation: No Goal/Treatment Plan - Goal/Treatment Plan Need for Continued Stay: Remain at risks for inpatient hospitalization, D ischarge may exacerbated symptoms, Severe functional impairment Progress Toward Problem(s) and Goals/Treatment Plan: Patient education. Supportive therapy. CBT for relapse prevention. [place] for abstinence. Will increase the dose of Seroquel to 300 mg at bedtime. Depakote level in a.m. Continue rest of the treatment as before. Estimated Date of D/C: 11/25/18 - Smoking Cessation Smoking Cessation Initiated: No
[2018-11-24] MEDS: Divalproex 500 mg DR Tab PO SCH ×3 (09:02→22:21)
--- NOTE | 2018-11-24 16:13 | PCM.PYCHPN ---
Psychiatric Progress Note - Psychiatric Progress Note Patient seen today, length of contact: 15-minute Patient Chief Complaint: I am not feeling better. I am feeling body aches and headache. Problems Identified/Issues Discussed: Patient seen, chart reviewed, case discussed with the staff. Issues related to illness and treatment were discussed with the patient and staff. Reported compliant with treatment with no adverse effects. Tolerating treatment very well. Patient reported not feeling better. Patient reported feeling headache and body aches. Staff also reported some behavioral disturbance at times. Issues discussed with the patient. Patient was labile. Mood reported as okay. Affect inappropriate, appeared constricted. Patient needs more time for stabilization. Aftercare discussed with the patient. Denied any delusions, auditory or visual hallucinations, suicidal ideations or homicidal ideations at the time of evaluation. Medical Problems: Hypertension Diagnostic Results: Reviewed DSM 5 Symptoms Update: Some improvement with treatment. Medication Change: No Medical Record Reviewed: Yes Mental Status Examination - Cognitive Function Orientation: Person, Place, Time Memory: Intact Attention: WNL Concentration: WNL Association: WNL Fund of Knowledge: Poor Decription of patient's judgement and insights: Fair - Mood Mood: Other (okay) - Affect Affect: Constricted - Speech Speech: Appropriate - Formal Thought Process Formal Thought Process: Loosening of associations, Flight of ideas - Suicidal Ideation Suicidal Ideation: No - Homicidal Ideation Homicidal Ideation: No Goal/Treatment Plan - Goal/Treatment Plan Need for Continued Stay: Remain at risks for inpatient hospitalization, Discharge may exacerbated symptoms, Severe functional impairment Progress Toward Problem(s) and Goals/Treatment Plan: Patient education. Supportive therapy. CBT for relapse prevention. [place] for abstinence. We will do Depakote level tomorrow morning. Continue treatment as before. Estimated Date of D/C: 11/29/18 - Smoking Cessation Smoking Cessation Initiated: No
[2018-11-25] MEDS: Divalproex 500 mg DR Tab PO SCH ×3 (09:17→21:39)
--- NOTE | 2018-11-25 21:29 | PCM.PYCHPN ---
Psychiatric Progress Note - Psychiatric Progress Note Patient seen today, length of contact: 15-minute Patient Chief Complaint: I am not feeling better. I am feeling body aches and headache. Problems Identified/Issues Discussed: Patient seen, chart reviewed, case discussed with the staff. Issues related to illness and treatment were discussed with the patient and staff. Reported compliant with treatment with no adverse effects. Tolerating treatment very well. Patient reported not feeling better. Patient reported feeling headache and body aches. Staff also reported some behavioral disturbance at times. Issues discussed with the patient. Patient was labile. Mood reported as okay. Affect inappropriate, appeared constricted. Patient needs more time for stabilization. Aftercare discussed with the patient. Denied any delusions, auditory or visual hallucinations, suicidal ideations or homicidal ideations at the time of evaluation. Medical Problems: Hypertension Diagnostic Results: Reviewed Medication Change: No Medical Record Reviewed: Yes Mental Status Examination - Cognitive Function Orientation: Person, Place, Time Memory: Intact Attention: WNL Concentration: WNL Association: WNL Fund of Knowledge: Poor Decription of patient's judgement and insights: Fair - Mood Mood: Other (okay) - Affect Affect: Constricted - Speech Speech: Appropriate - Formal Thought Process Formal Thought Process: Loosening of associations, Flight of ideas - Suicidal Ideation Suicidal Ideation: No - Homicidal Ideation Homicidal Ideation: No Goal/Treatment Plan - Goal/Treatment Plan Need for Continued Stay: Remain at risks for inpatient hospitalization, Discharge may exacerbated symptoms, Severe functional impairment Progress Toward Problem(s) and Goals/Treatment Plan: Patient education. Supportive therapy. CBT for relapse prevention. [place] for abstinence. Will start Zyprexa 10 mg at bedtime, and discontinue Seroquel. Continue rest of the treatment as before. Estimated Date of D/C: 11/29/18 - Smoking Cessation Smoking Cessation Initiated: No
[2018-11-26] MEDS: Divalproex 500 mg DR Tab PO SCH ×3 (10:08→21:33)
--- NOTE | 2018-11-26 15:41 | PCM.PYCHPN ---
Psychiatric Progress Note - Psychiatric Progress Note Patient seen today, length of contact: 15-minute Patient Chief Complaint: I am feeling little better. Problems Identified/Issues Discussed: Patient seen, chart reviewed, case discussed with the staff. Issues related to illness and treatment were discussed with the patient and staff. Reported compliant with treatment with no adverse effects. Tolerating treatment very well. Patient reported still not feeling better. Patient reported feeling headache and body aches. Staff also reported some behavioral disturbance at times. Issues discussed with the patient. Patient was labile. Mood reported as okay. Affect inappropriate, appeared constricted. Patient needs more time for stabilization. Aftercare discussed with the patient. Denied any delusions, auditory or visual hallucinations, suicidal ideations or homicidal ideations at the time of evaluation. Medical Problems: Hypertension Diagnostic Results: Reviewed Medication Change: No Medical Record Reviewed: Yes Mental Status Examination - Cognitive Function Orientation: Person, Place, Time Memory: Intact Attention: WNL Concentration: WNL Association: WNL Fund of Knowledge: Poor Decription of patient's judgement and insights: Fair - Mood Mood: Other (okay) - Affect Affect: Constricted - Speech Speech: Appropriate - Formal Thought Process Formal Thought Process: Loosening of associations, Flight of ideas - Suicidal Ideation Suicidal Ideation: No - Homicidal Ideation Homicidal Ideation: No Goal/Treatment Plan - Goal/Treatment Plan Need for Continued Stay: Remain at risks for inpatient hospitalization, Discharge may exacerbated symptoms, Severe functional impairment Progress Toward Problem(s) and Goals/Treatment Plan: Patient education. Supportive therapy. CBT for relapse prevention. [place] for abstinence. Continue treatment as before. Estimated Date of D/C: 11/29/18 - Smoking Cessation Smoking Cessation Initiated: No
[2018-11-27] MEDS: Divalproex 500 mg DR Tab PO SCH ×3 (09:36→21:23)
--- NOTE | 2018-11-27 23:55 | PCM.PYCHPN ---
Psychiatric Progress Note - Psychiatric Progress Note Patient seen today, length of contact: 17-minute Patient Chief Complaint: "I still hear voices sometimes" Problems Identified/Issues Discussed: The pt is seen, chart reviewed, case is discussed with staff. The pt is compliant with medications and reports no side-effects. Symptoms are improving but needs more time to stabilize and to avoid relapse. Pt attends groups and activities. Support given, psycho-education provided. After care discussed. Medication Change: No Medical Record Reviewed: Yes Mental Status Examination - Cognitive Function Orientation: Person, Place, Time Memory: Intact Attention: WNL Concentration: WNL Association: WNL Fund of Knowledge: Poor - Mood Mood: Other (okay) - Affect Affect: Constricted - Speech Speech: Appropriate - Formal Thought Process Formal Thought Process: Loosening of associations, Flight of ideas - Suicidal Ideation Suicidal Ideation: No - Homicidal Ideation Homicidal Ideation: No Goal/Treatment Plan - Goal/Treatment Plan Need for Continued Stay: Remain at risks for inpatient hospitalization, Discharge may exacerbated symptoms, Severe functional impairment Progress Toward Problem(s) and Goals/Treatment Plan: Continue medications Support and psychoeducation daily Attend groups and activities daily Individual therapy After care planning by KIKO and the team Estimated Date of D/C: 11/29/18
[2018-11-28] MEDS: Divalproex 500 mg DR Tab PO SCH ×3 (10:04→21:24)
--- NOTE | 2018-11-29 13:26 | PCM.PYCHPN ---
Psychiatric Progress Note - Psychiatric Progress Note Patient seen today, length of contact: 15-minute Patient Chief Complaint: I am still feeling irritable Problems Identified/Issues Discussed: Patient was seen and evaluated, chart reviewed and discussed with the staff. Patient appears more organized and less disorganized than before. As per staff patient still gets irritable and agitated at times. He reports some improvement in the auditory hallucinations and paranoia. He is taking medication but denies any side effects. Symptoms are improving gradually but he needs to stay longer for further stabilization. Supportive therapy was given. Medication Change: No Medical Record Reviewed: Yes Mental Status Examination - Cognitive Function Orientation: Person, Place, Time Memory: Intact Attention: WNL Concentration: WNL Association: Loose Fund of Knowledge: Poor - Mood Mood: Anxious - Affect Affect: Broad - Speech Speech: Appropriate - Formal Thought Process Formal Thought Process: Paranoia, Loosening of associations, Flight of ideas - Suicidal Ideation Suicidal Ideation: No - Homicidal Ideation Homicidal Ideation: No Goal/Treatment Plan - Goal/Treatment Plan Need for Continued Stay: Remain at risks for inpatient hospitalization, Discharge may exacerbated symptoms, Severe functional impairment Progress Toward Problem(s) and Goals/Treatment Plan: Schizoaffective disorder bipolar type. Cannabis withdrawal. Cannabis use disorder severe Patient education. Supportive therapy. CBT for relapse prevention. [place] for abstinence. Haldol for psychosis Depakote for mood Neurontin for augmentation Zyprexa for psychosis Estimated Date of D/C: 11/30/18
[2018-11-29] MEDS: Divalproex 500 mg DR Tab PO SCH (18:32)
[2018-11-30 06:55] VITALS: RESP 20; O2SAT 96
[2018-11-30] MEDS: Divalproex 500 mg DR Tab PO SCH ×2 (09:41→17:14)
--- NOTE | 2018-11-30 23:24 | PCM.PYCHPN ---
Psychiatric Progress Note - Psychiatric Progress Note Patient seen today, length of contact: 17-minute Patient Chief Complaint: I am still feeling irritable Problems Identified/Issues Discussed: Patient was seen and evaluated, chart reviewed and discussed with the staff. Patient appears more organized and less disorganized than before. As per staff patient still gets irritable and agitated at times. He reports some improvement in the auditory hallucinations and paranoia. He is taking medication but denies any side effects. Symptoms are improving gradually but he needs to stay longer for further stabilization. Supportive therapy was given. Medication Change: No Medical Record Reviewed: Yes Mental Status Examination - Cognitive Function Orientation: Person, Place, Time Memory: Intact Attention: WNL Concentration: WNL Association: WNL Fund of Knowledge: Poor - Mood Mood: Other (okay) - Affect Affect: Constricted - Speech Speech: Appropriate - Formal Thought Process Formal Thought Process: Loosening of associations, Flight of ideas - Suicidal Ideation Suicidal Ideation: No - Homicidal Ideation Homicidal Ideation: No Goal/Treatment Plan - Goal/Treatment Plan Need for Continued Stay: Remain at risks for inpatient hospitalization, Discharge may exacerbated symptoms, Severe functional impairment Progress Toward Problem(s) and Goals/Treatment Plan: Schizoaffective disorder bipolar type. Cannabis withdrawal. Cannabis use disorder severe Patient education. Supportive therapy. CBT for relapse prevention. [place] for abstinence. Haldol for psychosis Depakote for mood Neurontin for augmentation Zyprexa for psychosis Estimated Date of D/C: 11/29/18
[2018-12-01 06:58] VITALS: BP 97/57; PULSE 83; TEMP 98.5
[2018-12-01] MEDS: Divalproex 500 mg DR Tab PO SCH (10:26)
--- NOTE | 2018-12-01 11:04 | PCM.PYCHDC ---
Mental Status Examination - Mental Status Examination Orientation: Person, Place, Situation, Time Memory: Intact Mood: Anxious Affect: Constricted Speech: Appropriate Attention: WNL Concentration: WNL Association: WNL Fund of Knowledge: WNL Formal Thought Process: No Impairment Suicidal Ideation: No Current Homicidal Ideation?: No Discharge Summary - Discharge Note Reason for Hospitalization: Schizoaffective disorder Consultations:: List each consultation separately and include: 1. Reason for request. 2. Findings. 3. Follow-up Summary of Hospital Course include:: 1. Description of specific treatment plan utilized for patients during their course of treatmen. 2. Summarize the time- course for resolution of acute symptoms and/or regressed behaviors. 3. Describe issues identified and worked on during hospitalization. 4. Describe medication utilized. 5. Describe medical problems identified and treated. 6. Reassessment of suicide risk Summary of Hospital Course: Hospital course: The pt was admitted and started on treatment with psychotherapy, support, psychoeducation and medications. HI and CBT used. The pt attended groups and activities, as well as milieu therapy. All the risks and benefits of medications are discussed and the patient understood and agreed. The pt improved with the treatments provided. After care discussed with the patient. He is not sure which [facility] he will go to. - Final Diagnosis (DSM 5) Condition upon Discharge: STABLE DSM 5: Schizoaffective disorder depressive type. Cannabis withdrawal. Cannabis use disorder severe Disposition: HOME/ ROUTINE Follow-up Treatment Plan: Continue below medications after discharge. Follow after care plan as discussed. Use relapse prevention skills Return to ER or call 911 if suicidal, homicidal or symptoms relapse. Stay away from stress, alcohol and drugs. See primary doctor regularly and get labs. Prescriptions/Medication Reconciliation: Benztropine [Cogentin] 1 mg PO BID #60 tab Divalproex [Depakote DR] 500 mg PO BID #60 tcp Gabapentin [Neurontin] 600 mg PO BID #60 tab Haloperidol [Haldol] 10 mg PO BID #60 tab OLANZapine [Zyprexa] 10 mg PO HS #30 tab
== END 2018-12-01 12:17 | disposition home or self-care (01) | DRG 750 ==
LOC: C.ER 15:14 → C.5E 17:52
PROC: GZHZZZZ Group Psychotherapy (ICD-10-PCS; principal; 2018-11-13)
PROC: HZ52ZZZ Individual Psychotherapy for Substance Abuse Treatment, Cognitive-Behavioral (ICD-10-PCS; 2018-11-13)
PROC: HZ59ZZZ Individual Psychotherapy for Substance Abuse Treatment, Supportive (ICD-10-PCS; 2018-11-13)
PROC: HZ56ZZZ Individual Psychotherapy for Substance Abuse Treatment, Psychoeducation (ICD-10-PCS; 2018-11-13)
PROC: HZ46ZZZ Group Counseling for Substance Abuse Treatment, Psychoeducation (ICD-10-PCS; 2018-11-13)
PROC: GZ58ZZZ Individual Psychotherapy, Cognitive-Behavioral (ICD-10-PCS; 2018-11-13)
PROC: GZ56ZZZ Individual Psychotherapy, Supportive (ICD-10-PCS; 2018-11-13)
PROC: HZ42ZZZ Group Counseling for Substance Abuse Treatment, Cognitive-Behavioral (ICD-10-PCS; 2018-11-13)
DX: F25.0 Schizoaffective disorder, bipolar type (principal); F12.23 Cannabis dependence with withdrawal; I10 Essential (primary) hypertension; E78.00 Pure hypercholesterolemia, unspecified; Z91.19 Patient's noncompliance with other medical treatment and regimen; F41.9 Anxiety disorder, unspecified; F32.9 Major depressive disorder, single episode, unspecified; Z95.0 Presence of cardiac pacemaker; Z59.0 Homelessness